=== PATIENT | female | born 1980 | race Two or more races ===

== ENCOUNTER → 2016-06-03 | Outpatient (CLI) | payer OTHER ==
[2014-10-08 22:15] VITALS: BP 142/84
[~2016-06-03] MED LIST: IBUP-1060 PO; LABE200T2 PO; OXYC-323 PO
--- NOTE | 2016-06-04 09:13 | RAD ---
Obstetrical ultrasound, 06/03/2016: History: Pelvic pain, Transabdominal scans were obtained. There is a single intrauterine gestational sac containing a single pole. It demonstrates a crown-rump length of 3.2 cm compatible with a gestational age of 10 weeks. This yields a sonographic EDC of 12/30/2016. motion and cardiac activity is present. There is no evidence of subchorionic hemorrhage. The ovaries are unremarkable. No adnexal mass is seen. No free fluid is evident in the pelvis. IMPRESSION: Single viable intrauterine fetus of 10 weeks gestational age.
== END | disposition home or self-care (01) ==
LOC: US 14:23
PROVIDERS: ATTEND Family Medicine
DX: O26.891 Other specified pregnancy related conditions, first trimester (principal); R10.2 Pelvic and perineal pain; O13.1 Gestational [pregnancy-induced] hypertension without significant proteinuria, first trimester; Z3A.10 10 weeks gestation of pregnancy
CPT/HCPCS: 76801

== ENCOUNTER 2016-12-05 11:55 | Inpatient (IN) | payer OTHER ==
[~2016-12-05] VITALS: Ht 154.9 cm; Wt 85.3 kg
[2016-12-05] MEDS ORDERED: IV RINGERS,LACTATED 1000ML 1,000 ML IV SCH (12:16)
[2016-12-05 12:30] VITALS: BP 132/90
[2016-12-05 14:08] LABS: HEMATOCRIT 39.8 % (36.0-47.0); HEMOGLOBIN 13.5 g/dL (12.0-15.5); RED BLOOD COUNT 4.47 x10^6/uL (3.50-5.40); RED CELL DISTRIBUTION WIDTH 14.4 % (11.5-14.5); WHITE BLOOD COUNT 11.3 x10^3/uL (4.0-11.0)
[2016-12-05 14:35] LABS: CREATININE 0.5 mg/dL (0.6-1.0); GFR 140.4; POTASSIUM 3.6 mmol/L (3.5-5.1)
[2016-12-05 14:41] LABS: ALBUMIN 2.5 g/dL (3.4-5.0); ALBUMIN/GLOBULIN RATIO 0.6 (1.0-1.7); TOTAL BILIRUBIN 0.4 mg/dL (0.2-1.0); TOTAL PROTEIN 6.5 g/dL (6.4-8.2)
--- NOTE | 2016-12-05 19:49 | RAD ---
Biophysical profile: Clinical indications: Hypertension. Future surveillance and growth.. Findings: A single intrauterine is present in the cephalic position. heart rate is 133. breathing movements: 2. motion: 2. tone: 2. Amniotic fluid volume: 2. Therefore, the biophysical profile score is 8 out of 8. Impression: Biophysical profile score is 8 out of 8. Electronically signed by: Jordan Torres MD (12/05/2016 7:46 PM) [facility]
--- NOTE | 2016-12-05 19:53 | RAD ---
Limited OB ultrasound study HISTORY: Hypertension. surveillance and growth. COMPARISON: None available on [facility] P[facility]. FINDINGS: Single intrauterine fetus is seen in cephalic presentation. heart rate is 133 bpm. BPD is 9.62 cm which equals 39 weeks 2 days. HC is 35.56 cm which equals 41 weeks 5 days. Abdominal circumference is 32.4 cm which equals 36 weeks 2 days. Femur length is 7.91 cm which equals 40 weeks 3 days. Average gestational age by ultrasound is 39 weeks 3 days +/- 3 weeks with an EDC of December 09, 2016. Estimated weight is 7 pounds and 10 ounces. The anatomy was not evaluated on this study. EDGAR using the 4 quadrant method is 13.5. The cervix is not visualized. Posterior grade 1 placenta is seen. The placenta is not well visualized in this study. No placenta previa is identified. IMPRESSION: Single IUP in cephalic presentation with approximate gestational age of 39 weeks 3 days. The abdominal circumference is lagging behind the other parameters and may be seen with IUGR. Electronically signed by: Jordan Torres MD (12/05/2016 7:50 PM) [facility]
[2016-12-05 20:21] LABS: BILIRUBIN,URINE NEGATIVE (NEG); GLUCOSE,URINE NEGATIVE (NEG); NITRITE,URINE NEGATIVE (NEG); PROTEIN,URINE NEGATIVE (NEG-TRACE); UROBILINOGEN,URINE 0.2 mg/dL (0.2 mg/dL)
[2016-12-05 20:32] LABS: BACTERIA,URINE FEW /HPF (0-FEW); RBC,URINE OCC /HPF (0-2); SQUAMOUS EPITHELIAL CELL,UR MANY /LPF; WBC,URINE OCC /HPF (0-4)
[2016-12-05] MEDS ORDERED: ACETAMINOPHEN 325 MG TABLET. PO PRN (23:10)
[2016-12-06] MEDS ORDERED: PNV1TABL25 PO (09:09)
[2016-12-06] MEDS ORDERED: METH250T PO ×2 (09:09→09:10)
--- NOTE | 2016-12-06 16:07 | PDOC ---
OB Progress Note Date of Service 12/06/16 Time of Evaluation 1600 Notes PT. feeling well. No headache, vision changes, abd pain, abd ctxs or vaginal bleeding. BP stable in range less than 140/90. Lab Laboratory Tests Test 12/05/16 14:00 12/05/16 20:15 White Blood Count 11.3 x10^3/uL (4.0-11.0) Red Blood Count 4.47 x10^6/uL (3.50-5.40) Hemoglobin 13.5 g/dL (12.0-15.5) Hematocrit 39.8 % (36.0-47.0) Mean Corpuscular Volume 89 fL (79-100) Mean Corpuscular Hemoglobin 30 pg (25-35) Mean Corpuscular Hemoglobin Concent 34 g/dL (31-37) Red Cell Distribution Width 14.4 % (11.5-14.5) Platelet Count 192 x10^3/uL (140-400) Sodium Level 139 mmol/L (136-145) Potassium Level 3.6 mmol/L (3.5-5.1) Chloride Level 105 mmol/L (98-107) Carbon Dioxide Level 21 mmol/L (21-32) Anion Gap 13 (6-14) Blood Urea Nitrogen 4 mg/dL (7-20) Creatinine 0.5 mg/dL (0.6-1.0) Estimated GFR (Cockcroft-Gault) 140.4 BUN/Creatinine Ratio 8 (6-20) Glucose Level 81 mg/dL (70-99) Calcium Level 9.0 mg/dL (8.5-10.1) Total Bilirubin 0.4 mg/dL (0.2-1.0) Aspartate Amino Transf (AST/SGOT) 22 U/L (15-37) Alanine Aminotransferase (ALT/SGPT) 17 U/L (14-59) Alkaline Phosphatase 197 U/L (46-116) Total Protein 6.5 g/dL (6.4-8.2) Albumin 2.5 g/dL (3.4-5.0) Albumin/Globulin Ratio 0.6 (1.0-1.7) RPR Titer Additional Testing Non reactive (Non Reactive) Urine Collection Type Unknown Urine Color Yellow Urine Clarity Cloudy Urine pH 7.0 Urine Specific [place] <=1.005 Urine Protein Negative mg/dL (NEG-TRACE) Urine Glucose (UA) Negative mg/dL (NEG) Urine Ketones (Stick) Negative mg/dL (NEG) Urine Blood Negative (NEG) Urine Nitrite Negative (NEG) Urine Bilirubin Negative (NEG) Urine Urobilinogen Dipstick 0.2 mg/dL (0.2 mg/dL) Urine Leukocyte Esterase Small (NEG) Urine RBC Occ /HPF (0-2) Urine WBC Occ /HPF (0-4) Urine Squamous Epithelial Cells Many /LPF Urine Bacteria Few /HPF (0-FEW) Laboratory Tests Test 12/05/16 20:15 Urine Collection Type Unknown Urine Color Yellow Urine Clarity Cloudy Urine pH 7.0 Urine Specific [place] <=1.005 Urine Protein Negative mg/dL (NEG-TRACE) Urine Glucose (UA) Negative mg/dL (NEG) Urine Ketones (Stick) Negative mg/dL (NEG) Urine Blood Negative (NEG) Urine Nitrite Negative (NEG) Urine Bilirubin Negative (NEG) Urine Urobilinogen Dipstick 0.2 mg/dL (0.2 mg/dL) Urine Leukocyte Esterase Small (NEG) Urine RBC Occ /HPF (0-2) Urine WBC Occ /HPF (0-4) Urine Squamous Epithelial Cells Many /LPF Urine Bacteria Few /HPF (0-FEW) Medications Current Medications Ringer's Solution 1,000 ml @ 125 mls/hr Q8H IV ; Start 12/05/16 at 12:16 Acetaminophen (Tylenol) 650 mg PRN Q6HRS PRN PO HEADACHE Last administered on t 23:34; Start 12/05/16 at 23:10 Active Scripts Active Reported Methyldopa 250 Mg Tablet 1 Tab PO DAILYWLUN Methyldopa 250 Mg Tablet 500 Mg PO BID Tablet (Pnv Cmb#95/Ferrous Fumarate/Fa) 1 Each Tablet 1 Tab PO DAILY Exam Abd: soft, non tender, no RUQ tenderness; DTR's +2 belia. Assessment A: 39 wks IUP Previous c/s Elevated BP P: 24 hour Urine protein pending. COntinue observation. If evidence of preeclampsia, then plan for repeat c/s Thursday or Thursday. ELISSA PERSAUD Jr, MD Dec 06, 2016 16:07
[2016-12-07 12:09] LABS: TOTAL SERUM CREATININE 0.49 mg/dL (0.57-1.00); TOTAL URINE CREATININE 95.4 mg/dL (Not Estab.)
--- NOTE | 2016-12-07 16:07 | PDOC ---
Provider Note Provider Note Stable Protein 389 VSS Plan RLTC/S in AM LAZ FERRER MD Dec 07, 2016 16:07
[2016-12-08] VITALS (9 sets, daily range): BP systolic 120–140; BP diastolic 70–90
[2016-12-08] MEDS ORDERED: IV RINGERS,LACTATED 1000ML 1,000 ML IV SCH ×3 (05:30→07:58)
[2016-12-08 06:23] LABS: HEMATOCRIT 40.8 % (36.0-47.0); HEMOGLOBIN 14.1 g/dL (12.0-15.5); RED BLOOD COUNT 4.53 x10^6/uL (3.50-5.40); RED CELL DISTRIBUTION WIDTH 14.2 % (11.5-14.5)
[2016-12-08] MEDS ORDERED: fentaNYL PF VIAL 100 MCG/2 ML VIAL ONE (07:19)
[2016-12-08] MEDS ORDERED: ePHEDrine PF IN SALINE 50 MG/5 ML DISP.SYRIN IV ONE (07:19)
[2016-12-08] MEDS ORDERED: OXYTOCIN 10 UNIT/ML VIAL. ONE ×2 (07:19→08:52)
[2016-12-08] MEDS ORDERED: MORPHINE PF 5 MG/10 ML VIAL. ONE (07:19)
[2016-12-08] MEDS ORDERED: ONDANSETRON PF 4 MG/2 ML VIAL. ONE (07:19)
[2016-12-08] MEDS ORDERED: PROCHLORPERAZINE 10 MG/2 ML VIAL. IV PRN (08:00)
[2016-12-08] MEDS ORDERED: diphenhydrAMINE 50 MG/ML VIAL IV PRN ×2 (08:00)
[2016-12-08] MEDS ORDERED: NALBUPHINE 10 MG/ML AMPUL. IV PRN (08:00)
[2016-12-08] MEDS ORDERED: NALOXONE 0.4 MG/ML VIAL. IV PRN (08:00)
[2016-12-08] MEDS ORDERED: ATROPINE 0.5 MG/5 ML DISP.SYRIN. IV PRN (08:00)
[2016-12-08] MEDS ORDERED: KETOROLAC 30 MG/ML INJ. IV ONE (08:00)
[2016-12-08] MEDS ORDERED: ONDANSETRON PF 4 MG/2 ML VIAL. IV PRN ×2 (08:00→09:15)
--- NOTE | 2016-12-08 08:03 | PDOC1 ---
OB - History Hx of Present Care: Good Care Ultrasounds: Normal mid trimester US Obstetrical Complications: Pre-eclampsia, Gestational Hypertension Medical Complications: Cardiovascular Past Family/Social History * Past Medical, Surgical, Family and Obstetric Histories reviewed from chart. Blood Type: O+ Rubella: Immune RPR/VDRL: Negative GBS Status: Negative HBsAG: Negative OB - Chief Complaint & HPI Date of Admission: Date of Admission: Dec 05, 2016 at 11:55 Chief Complaint/History : 3 Para: 2 EDC: Dec 23, 2016 Reason for admission: observation, other (PIH) Admission Nurse Assessment Rev: Yes Problems: OB - Admission Exam Physical Exam Vitals: VS - Last 72 Hours, by Label Date Time Temp Pulse Resp B/P (MAP) Pulse Ox O2 Delivery O2 Flow Rate FiO2 12/05/16 12:30 98.2 100 20 132/90 (104) Room Air 98.2 HEENT: Normal, Nasal Mucosa Normal, Oropharynx Normal, Moist Membranes, Fontanelles Normal Heart: Regular Rate Lungs: Clear Abdomen: Gravid Extremities: Normal Pulses, No tenderness or swelling Reflexes: Normal Cervical Dilatation: None Membranes: Intact Heart Rate: Normal Accelerations: Accelerations Present Decelerations: No decelerations Short Term Variability: Present Assistant Strength Coach Variability: Moderate Assessment/Plan 37 week IUP PIH 24 hour urine Blood pressure control Consider delivery if abnormal and continued BP problems Problems: LAZ FERRER MD Dec 08, 2016 08:03
[2016-12-08] MEDS ORDERED: CITRIC ACID/SODIUM CITRATE 30 ML SOLUTION. PO ONE (08:15)
[2016-12-08] MEDS ORDERED: diphenhydrAMINE ORAL ELIXIR 12.5 MG/5 ML ML PO PRN (09:15)
[2016-12-08] MEDS ORDERED: OXYTOCIN 30 UNIT/500 ML PREMIX 500 ML IV PRN (09:15)
[2016-12-08] MEDS ORDERED: MAGNESIUM HYDROXIDE 2,400 MG/30 ML ORAL.SUSP. PO PRN (09:15)
[2016-12-08] MEDS ORDERED: DOCUSATE SODIUM 100 MG CAPSULE. PO PRN (09:15)
[2016-12-08] MEDS ORDERED: ZOLPIDEM 5 MG TABLET. PO PRN (09:15)
[2016-12-08] MEDS ORDERED: SIMETHICONE 80 MG TAB.CHEW PO PRN (09:15)
[2016-12-08] MEDS ORDERED: MMR per PROTOCOL. MC PRN (09:15)
[2016-12-08] MEDS ORDERED: MAG HYDROX/ALUMINUM HYD/SIMETH 30 ML ORAL.SUSP PO PRN (09:15)
[2016-12-08] MEDS ORDERED: 0.9 % SODIUM CHLORIDE 10 ML DISP.SYRIN. IV PRN (09:15)
--- NOTE | 2016-12-08 09:15 | PDOC ---
BRIEF OPERATIVE NOTE Pre-Op Diagnosis PIH Post-Op Diagnosis Same Procedure Performed RLTC/S Surgeon Johana Plastic Top Assembler ERIK Anesthesia Type: Regional Blood Loss 800cc Specimens Obtained Placenta Findings Male 7# 13oz Complications None LAZ FERRER MD Dec 08, 2016 09:15
[2016-12-08] MEDS ORDERED: FERROUS SULFATE 325 MG TABLET. PO SCH (17:00)
--- NOTE | 2016-12-08 18:33 | OP ---
DATE OF SURGERY: 12/08/2016 PREOPERATIVE DIAGNOSES: Term intrauterine , -induced hypertension. POSTOPERATIVE DIAGNOSES: Term intrauterine , -induced hypertension, desires repeat . SURGEON: Tom Vaughn M.D. ENGINEERING AGENT: Dr. Watkins. ANESTHESIA: Regional. ESTIMATED BLOOD LOSS: 800 mL. FLUIDS: Crystalloid. SPECIMENS: Placenta. FINDINGS: Normal uterus, tubes, and ovaries. Male infant, Apgars pending. Weight 7 pounds 13 ounces. COMPLICATIONS: None. CONDITION: Stable. DESCRIPTION OF PROCEDURE: After risks, benefits, indications, alternatives and expectations were discussed in detail with the patient, the patient brought to the OR theater and placed in supine position with left lateral uterine displacement. After adequate regional anesthesia, the patient was prepped and draped in usual sterile manner. The previous Pfannenstiel incision was taken out in toto with the scalpel and Bovie cautery, carried down through the subcutaneous tissue with Bovie cautery. Rectus fascia was nicked in midline with Bovie cautery and extended laterally in each direction with Bovie cautery. Upper edge of rectus fascia was both bluntly and sharply with gloved hand and Bovie cautery. Same procedure was carried out on lower edge of rectus fascia. Rectus muscle was split in midline and superiorly and inferiorly with Bovie cautery with care not to injure any underlying structures. Parietal peritoneum was entered bluntly, extended superiorly and inferiorly with Bovie cautery. Lisandro retractor was replaced after a bladder flap was created with Metzenbaum scissors. Sponges were placed in the gutters. Low transverse hysterotomy incision was made sharply with the scalpel with care not to injure any underlying structures. Old dark blood came out of the incision with clear amniotic fluid. The incision was extended superiorly and laterally with gloved hand. Gloved hand was placed within the lower uterine segment. With fundal pressure from the dietary assistant, was delivered on the anterior abdominal wall. cried spontaneously and moved all extremities and was handed to nursing care in attendance after oral suction and double clamping the cord after 30 seconds and transecting the cord between the two clamps. Cord blood samples were taken. Placenta delivered spontaneously intact, was handed off the operative field to be sent to path. The uterus was wiped clean of any adherent membranes. Low transverse hysterotomy incision was reapproximated with 0 Monocryl in a running locking manner, imbricated with 0 Monocryl in a horizontal mattress stitch fashion. The sponges previously placed was removed. Gutters were inspected and noted to be free of any blood or debris. The Lisandro retractor was removed. Lower uterine segment was once again inspected. There were some areas on the dome of the bladder that was controlled with Tamiko agent. The muscles were reapproximated with 3-0 Vicryl in a horizontal interrupted fashion. The rectus muscles were inspected. The areas of bleeding were controlled with Bovie cautery. Remaining of the rectus fascia was reapproximated with 0 PDS in a running manner. Subcutaneous tissue was irrigated copiously with warm normal saline. Charlotte's fascia was reapproximated with 2-0 plain. Skin was reapproximated with Insorb bashir. Sponge, needle and instrument counts were correct x 2 per nursing staff. The patient went to postop anesthesia recovery in stable condition. TOM VAUGHN MD DR: SUAD/ace JOB#: [id number] / [id number]
[2016-12-09 05:00] LABS: BASO % 0 % (0-3); EOS % 1 % (0-3); HEMATOCRIT 33.7 % (36.0-47.0); HEMOGLOBIN 11.3 g/dL (12.0-15.5); LYMPH # 2.1 x10^3/uL (1.0-4.8); LYMPH % 18 % (24-48); MEAN CORPUSCULAR HEMOGLOBIN 31 pg (25-35); MEAN CORPUSCULAR HGB CONC 34 g/dL (31-37); MEAN CORPUSCULAR VOLUME 91 fL (79-100); MONO % 6 % (0-9); NEUT % 76 % (31-73); PLATELET COUNT 152 x10^3/uL (140-400); RED BLOOD COUNT 3.69 x10^6/uL (3.50-5.40); RED CELL DISTRIBUTION WIDTH 14.2 % (11.5-14.5); WHITE BLOOD COUNT 11.6 x10^3/uL (4.0-11.0)
[2016-12-09] MEDS: IBUPROFEN 800 MG TABLET. PO SCH ×2 (05:19→16:35)
[2016-12-09 05:45] VITALS: BP 140/92
[2016-12-09] MEDS: oxyCODONE/APAP 5/325 1 TAB TABLET PO PRN ×4 (09:09→20:43)
--- NOTE | 2016-12-09 09:52 | PDOC ---
Provider Note Provider Note Doing well VSS uterus NTTP Dressing CDI FU in AM LAZ FERRER MD Dec 09, 2016 09:52
[2016-12-09 10:50] VITALS: BP 146/86
[2016-12-09 16:30] VITALS: BP 147/85
[2016-12-09 21:03] VITALS: BP 142/81
[2016-12-10] MEDS: IBUPROFEN 800 MG TABLET. PO SCH ×2 (01:00→17:49)
[2016-12-10 05:30] VITALS: BP 135/83
[2016-12-10] MEDS: oxyCODONE/APAP 5/325 1 TAB TABLET PO PRN ×3 (06:09→23:04)
--- NOTE | 2016-12-10 08:44 | PDOC ---
OB Progress Note Date of Service 12/10/16 Time of Evaluation 0845 Notes PT. feeling well. Pain controlled. No complaints. Lab Laboratory Tests Test 12/09/16 03:35 White Blood Count 11.6 x10^3/uL (4.0-11.0) Red Blood Count 3.69 x10^6/uL (3.50-5.40) Hemoglobin 11.3 g/dL (12.0-15.5) Hematocrit 33.7 % (36.0-47.0) Mean Corpuscular Volume 91 fL (79-100) Mean Corpuscular Hemoglobin 31 pg (25-35) Mean Corpuscular Hemoglobin Concent 34 g/dL (31-37) Red Cell Distribution Width 14.2 % (11.5-14.5) Platelet Count 152 x10^3/uL (140-400) Neutrophils (%) (Auto) 76 % (31-73) Lymphocytes (%) (Auto) 18 % (24-48) Monocytes (%) (Auto) 6 % (0-9) Eosinophils (%) (Auto) 1 % (0-3) Basophils (%) (Auto) 0 % (0-3) Neutrophils # (Auto) 8.7 x10^3uL (1.8-7.7) Lymphocytes # (Auto) 2.1 x10^3/uL (1.0-4.8) Monocytes # (Auto) 0.6 x10^3/uL (0.0-1.1) Eosinophils # (Auto) 0.1 x10^3/uL (0.0-0.7) Basophils # (Auto) 0.0 x10^3/uL (0.0-0.2) Medications Current Medications Ringer's Solution 1,000 ml @ 125 mls/hr Q8H IV ; Start 12/05/16 at 12:16; Stop 12/07/16 at 16:35; Status DC Acetaminophen (Tylenol) 650 mg PRN Q6HRS PRN PO HEADACHE Last administered on t 23:34; Start 12/05/16 at 23:10 Ringer's Solution 1,000 ml @ 1,000 mls/hr Q1H IV Last administered on 06:00; Start 12/08/16 at 05:30; Stop 12/08/16 at 06:29; Status DC Ringer's Solution 1,000 ml @ 125 mls/hr Q8H IV Last administered on 12/08/16 14:43; Start 12/08/16 at 06:30 Cefazolin Sodium/ Dextrose 50 ml @ 100 mls/hr 1X ONCE IV Last administered on 12/08/16 08:05; Start 12/07/16 at 16:15; Stop 12/07/16 at 16:26; Status DC Cefazolin Sodium/ Dextrose 50 ml @ 100 mls/hr 1X PREOP IV ; Start 12/08/16 at 07:30 Fentanyl Citrate (Fentanyl 2ml Vial) 100 mcg STK-MED ONCE .ROUTE ; Start at 07:19; Stop 12/08/16 at 07:20; Status DC Oxytocin (Pitocin) 10 unit STK-MED ONCE .ROUTE ; Start 12/08/16 at 07:19; Stop 12/08/16 at 07:20; Status DC Ephedrine Sulfate 50 mg STK-MED ONCE IV ; Start 12/08/16 at 07:19; Stop at 07:20; Status DC Morphine Sulfate (Morphine Preservative Free) 5 mg STK-MED ONCE .ROUTE ; Start 12/08/16 at 07:19; Stop 12/08/16 at 07:20; Status DC Ondansetron HCl (Zofran) 4 mg STK-MED ONCE .ROUTE ; Start 12/08/16 at 07:19; Stop 12/08/16 at 07:20; Status DC Ketorolac Tromethamine (Toradol) 30 mg 1X ONCE IV Last administered on 11:23; Start 12/08/16 at 08:00; Stop 12/08/16 at 08:01; Status DC Ondansetron HCl (Zofran) 4 mg PRN Q6HRS PRN IV NAUSEA/VOMITING Last administered on 12/08/16 09:55; Start 12/08/16 at 08:00; Stop 12/09/16 at 07:59 ; Status DC Prochlorperazine Edisylate (Compazine) 5 mg PRN Q6HRS PRN IV NAUSEA/VOMITING; Start 12/08/16 at 08:00; Stop 12/09/16 at 07:59; Status DC Diphenhydramine HCl (Benadryl) 12.5 mg PRN Q4HRS PRN IV N/V; Start 12/08/16 at 08:00; Stop 12/09/16 at 07:59; Status DC Diphenhydramine HCl (Benadryl) 12.5 mg PRN Q2HR PRN IV ITCHING; Start 12/08/16 at 08:00; Stop 12/09/16 at 07:59; Status DC Nalbuphine HCl (Nubain) 2.5 mg PRN Q2HR PRN IV PAIN; Start 12/08/16 at 08:00; Stop 12/09/16 at 07:59; Status DC Atropine Sulfate 0.5 mg PRN 1X PRN IV SEE COMMENTS; Start 12/08/16 at 08:00; Stop 12/09/16 at 07:59; Status DC Naloxone HCl (Narcan) 0.04 mg PRN Q2MIN PRN IV SEE COMMENTS; Start 12/08/16 at 08:00; Stop 12/09/16 at 07:59; Status DC Ringer's Solution 1,000 ml @ 125 mls/hr Q8H IV Last administered on 12/08/16 23:04; Start 12/08/16 at 07:58; Stop 12/08/16 at 19:57; Status DC Citric Acid/ Sodium Citrate (Bicitra) 30 ml 1X ONCE PO Last administered on 08:08; Start 12/08/16 at 08:15; Stop 12/08/16 at 08:16; Status DC Oxytocin (Pitocin) 10 unit STK-MED ONCE .ROUTE ; Start 12/08/16 at 08:52; Stop 12/08/16 at 08:53; Status DC Sodium Chloride (Normal Saline Flush) 3 ml QSHIFT PRN IV AFTER MEDS AND BLOOD DRAWS; Start 12/08/16 at 09:15 Oxytocin/Sodium Chloride 500 ml @ 125 mls/hr CONT PRN IV EXCESSIVE POST- BLEEDING; Start 12/08/16 at 09:15; Stop 12/08/16 at 17:14; Status DC Ibuprofen (Motrin) 800 mg Q8HRS PO Last administered on 12/10/16 01:00; Start 12/08/16 at 14:00 Ondansetron HCl (Zofran) 4 mg PRN Q6HRS PRN IV NAUSEA/VOMITING; Start 12/08/16 at 09:15 Docusate Sodium (Colace) 100 mg PRN BID PRN PO CONSTIPATION; Start 12/08/16 at 09:15 Magnesium Hydroxide (Milk Of Magnesia) 2,400 mg PRN DAILY PRN PO CONSTIPATION; Start 12/08/16 at 09:15 Al Hydroxide/Mg Hydroxide (Mylanta Plus Xs) 30 ml PRN Q4HRS PRN PO HEARTBURN / GAS; Start 12/08/16 at 09:15 Simethicone (Gas-X) 80 mg PRN AFTMEALHC PRN PO GAS / BLOATING; Start 12/08/16 at 09:15 Diphenhydramine HCl (Benadryl Oral Elixir) 12.5 mg PRN Q6HRS PRN PO ITCHING; Start 12/08/16 at 09:15 Ferrous Sulfate (Feosol) 325 mg BIDWMEALS PO ; Start 12/08/16 at 17:00; Stop at 05:45; Status DC Zolpidem Tartrate (Ambien) 5 mg PRN QHS PRN PO INSOMNIA, MAY REPEAT X1; Start 12/08/16 at 09:15 Info (Do NOT chart on this placeholder) 1 ea PRN 1X PRN MC SEE COMMENTS; Start 12/08/16 at 09:15 Info (Do NOT chart on this placeholder) 1 ea PRN 1X PRN MC SEE COMMENTS; Start 12/08/16 at 09:15 Oxycodone/ Acetaminophen (Percocet 5/325) 1 tab PRN Q4HRS PRN PO MILD PAIN Last administered on 12/09/16 16:35; Start 12/08/16 at 09:15 Oxycodone/ Acetaminophen (Percocet 5/325) 2 tab PRN Q4HRS PRN PO MODERATE PAIN , SEVERE PAIN Last administered on 12/10/16 06:09; Start 12/08/16 at 09:15 Cefazolin Sodium 1 gm/Sodium Chloride 50 ml @ 100 mls/hr Q8H IV Last administered on 12/09/16 07:44; Start 12/08/16 at 16:00; Stop 12/09/16 at 08:29 ; Status DC Active Scripts Active Reported Methyldopa 250 Mg Tablet 1 Tab PO DAILYWLUN Methyldopa 250 Mg Tablet 500 Mg PO BID Tablet (Pnv Cmb#95/Ferrous Fumarate/Fa) 1 Each Tablet 1 Tab PO DAILY Exam Abd: soft, non tender, fundus firm Prevena wound vac in place Assessment POD#2 s/p c/s Plan of Care: Continue current Tx, Mgmt ELISSA PERSAUD Jr, MD Dec 10, 2016 08:44
[2016-12-10] MEDS ORDERED: FLU VACC QS2017-18 (36MOS+)/PF 0.5 ML SYRINGE. VAX IM ONE (09:00)
[2016-12-10 10:15] VITALS: BP 162/102
[2016-12-10 11:54] VITALS: BP 135/87
[2016-12-10 14:03] VITALS: BP 145/86
[2016-12-10 20:22] VITALS: BP 142/90
[2016-12-11 01:15] VITALS: BP 148/93
[2016-12-11] MEDS: IBUPROFEN 800 MG TABLET. PO SCH (05:29)
[2016-12-11] MEDS: oxyCODONE/APAP 5/325 1 TAB TABLET PO PRN ×2 (05:30→11:50)
[2016-12-11 06:00] VITALS: BP 138/91
[2016-12-11 08:00] VITALS: BP 139/87
--- NOTE | 2016-12-11 09:07 | PATHOLOGY ---
PATHOLOGY REPORT * * * * * * * * FINAL DIAGNOSIS: Placenta: - Third trimester placenta, 610 grams (borderline large for gestational age). - Attached trivascular umbilical cord and membranes without significant inflammation. - Placental parenchyma with focal tiny infarcts. (SKM:pit; 12/10/2016) REPORT ELECTRONICALLY SIGNED BY: Joaquín Salgado M.D. DATE/TIME: 12/11/2016 09:06 * * * * * * * * GROSS PATHOLOGY: Received in formalin labeled "Otilia Ashton, placenta and cord per requisition," is a davis placenta, with attached membranes and umbilical cord. The trimmed placental weight is 610 grams and the disc measures 20.3 x 16.8 x 3.0 cm. The membranes are niño-sebastian and translucent, and the site of membrane rupture is 2.4 cm from the placental margin. The surface is purple-niño and displays its normal arborizing vasculature. The 3 vessel umbilical cord measures 36.2 x 1.0 cm and inserts the centrically, 5.4 cm from the closest placental margin. The umbilical cord is mildly twisted. The maternal surface shows disrupted cotyledon; moderate blood coagulum is seen on the surface. Sectioning reveals maroon-red parenchyma with infarcts measuring less than 5% of the parenchyma. Sections are submitted as follows: A1: Membrane roll and peripheral edge A2: Umbilical cord A3-A4: Full-thickness sections with infarct and disruption INITIAL CPT CODE(S): A; 53314 Professional services performed [place] [facility] [place] [address] Technical services performed by [facility] at [address] [place] [address], [address] [address]. SPECIMEN(S) RECEIVED: A.Placenta CLINICAL HISTORY: Repeat , , EDC 12/26/16, 7lb 13oz male @ 0830 on 12/08/16, apgars 7-8-8 PATIENT: OTILIA ASHTON /AGE: 11 1980 (Age: 36) PATIENT #: [id number] ALT CASE #: SPECIMEN COLLECTION DATE: 12/08/2016 SPECIMEN RECEIVED DATE: 12/08/2016 [facility] - [address] [place] [address] - PHONE: [phone] * * * END OF REPORT * * *
--- NOTE | 2016-12-11 09:43 | PDOC3 ---
OB DISCHARGE SUMMARY DATE OF ADMISSION: 12/08/16 DATE OF DISCHARGE: 12/11/16 REASON FOR ADMISSION: Observation/evaluation, section, Other (PIH) PROCEDURES: None INTRAPARTUM PROCEDURES: : Low Cerv Trans PROCEDURES: None OPERATIONS: None DISCHARGE DIAGNOSIS: Term Delivered DISCHARGE INFORMATION: Activity, Diet HOSPITAL COURSE Unremarkable CONDITION AT DISCHARGE Stable LAZ FERRER MD Dec 11, 2016 09:43
[2016-12-11] MEDS ORDERED: OXYC-323 PO (09:46)
[2016-12-11] MEDS ORDERED: NAPR-683 PO (09:46)
[2016-12-11 11:00] VITALS: BP 142/98
== END 2016-12-11 12:00 | disposition home or self-care (01) | DRG 766 ==
LOC: 3 SO LND 11:55 → OBSVTOIN 12:19 → 3 SO LND 12-06 16:15
PROVIDERS: ADMIT Specialist; ATTEND Specialist
PROC: 10D00Z1 Extraction of Products of Conception, Low, Open Approach (ICD-10-PCS; principal; 2016-12-08)
DX: O13.4 Gestational [pregnancy-induced] hypertension without significant proteinuria, complicating childbirth (principal); Z37.0 Single live birth; Z3A.39 39 weeks gestation of pregnancy; O34.211 Maternal care for low transverse scar from previous cesarean delivery; O15.03 Eclampsia complicating pregnancy, third trimester
CPT/HCPCS: 36415; 76815; 76819; 80053; 81001; 82575; 84156; 85025; 85027; 86593; 86850; 86900; 86901; 87086; 88307; 90686; G0378; G0379; J0690; J1885; J2270; J2405; J2590; J3010; J7120

== ENCOUNTER 2018-07-10 06:44 | Inpatient (IN) | payer BC, OTHER ==
[2018-07-10] VITALS (10 sets, daily range): BP systolic 99–139; BP diastolic 54–84
[~2018-07-10] VITALS: Ht 154.9 cm; Wt 79.8 kg
[~2018-07-10 06:44] MED LIST changes: -LABE200T2 PO; +LABE200T4 PO; +METH250T3 PO; +NAPR-683 PO; -OXYC-323 PO; +OXYC1TAB15 PO; +PNV1TABL25 PO
[2018-07-10] MEDS ORDERED: IV NORMAL SALINE 1000ML BAG 1,000 ML IV SCH (07:07)
--- NOTE | 2018-07-10 07:10 | PHYS DOC ---
Adult General Chief Complaint Chief Complaint: ABDOMINAL PAIN HPI HPI Patient is a 38 year old female presented to ER today for evaluation of right upper quadrant abdominal pain started last night. Patient started had this problem about 3 months ago, she was diagnosed with gallbladder problem. Patient had an ultrasound done about a week ago showed multiple gallstones. The pain is more persistent and more severe.Patient felt nauseous, no vomiting. Patient denies any chest pain, no trouble breathing. Patient denies any fever. Review of Systems Review of Systems Constitutional: Denies fever or chills [] Eyes: Denies change in visual acuity, redness, or eye pain [] HENT: Denies nasal congestion or sore throat [] Respiratory: Denies cough or shortness of breath [] Cardiovascular: No additional information not addressed in HPI [] GI: Positive for abdominal pain, nausea, NO vomiting, bloody stools or diarrhea [] : Denies dysuria or hematuria [] Musculoskeletal: Denies back pain or joint pain [] Integument: Denies rash or skin lesions [] Neurologic: Denies headache, focal weakness or sensory changes [] Endocrine: Denies polyuria or polydipsia [] All other systems were reviewed and found to be within normal limits, except as documented in this note. Current Medications Current Medications Current Medications Medications (Trade) Dose Ordered Sig/[facility] Start Time Stop Time Status Last Admin Dose Admin Fentanyl Citrate (Fentanyl 2ml Vial) 50 mcg 1X ONCE 07/10/18 08:00 07/10/18 08:01 DC 07/10/18 08:11 50 MCG Ondansetron HCl (Zofran) 4 mg 1X ONCE 07/10/18 08:00 07/10/18 08:01 DC Sodium Chloride 1,000 ml @ 1,000 mls/hr Q1H 07/10/18 07:07 07/10/18 08:06 DC 07/10/18 07:17 1,000 MLS/HR Allergies Allergies Allergies Coded Allergies Type Severity Reaction Last Updated Verified No Known Drug Allergies 10/06/14 No Physical Exam Physical Exam Constitutional: Well developed, well nourished, no acute distress, non-toxic appearance. [] HENT: Normocephalic, atraumatic, bilateral external ears normal, oropharynx moist, no oral exudates, nose normal. [] Eyes: PERRLA, EOMI, conjunctiva normal, no discharge. [] Neck: Normal range of motion, no tenderness, supple, no stridor. [] Cardiovascular:Heart rate regular rhythm, no murmur [] Lungs & Thorax: Bilateral breath sounds clear to auscultation [] Abdomen: Bowel sounds normal, soft, there is tenderness to palpation in RUQ, no masses, no pulsatile masses. [] Skin: Warm, dry, no erythema, no rash. [] Back: No tenderness, no CVA tenderness. [] Extremities: No tenderness, no cyanosis, no clubbing, ROM intact, no edema. [] Neurologic: Alert and oriented X 3, normal motor function, normal sensory function, no focal deficits noted. [] Psychologic: Affect normal, judgement normal, mood normal. [] Current Patient Data Vital Signs Vital Signs Date Time Temp Pulse Resp B/P (MAP) Pulse Ox O2 Delivery O2 Flow Rate FiO2 07/10/18 09:00 56 18 101/56 (71) 97 07/10/18 07:16 Room Air 07/10/18 07:10 97.7 97.7 Lab Values Laboratory Tests Test 07/10/18 06:50 07/10/18 07:15 07/10/18 07:26 Urine Collection Type Unknown Urine Color Yellow Urine Clarity Clear Urine pH 6.5 Urine Specific [place] 1.025 Urine Protein Negative mg/dL (NEG-TRACE) Urine Glucose (UA) Negative mg/dL (NEG) Urine Ketones (Stick) Negative mg/dL (NEG) Urine Blood Negative (NEG) Urine Nitrite Negative (NEG) Urine Bilirubin Negative (NEG) Urine Urobilinogen Dipstick 1.0 mg/dL (0.2 mg/dL) Urine Leukocyte Esterase Negative (NEG) Urine RBC 0 /HPF (0-2) Urine WBC Occ /HPF (0-4) Urine Squamous Epithelial Cells Many /LPF Urine Bacteria 0 /HPF (0-FEW) Urine Mucus Marked /LPF White Blood Count 9.5 x10^3/uL (4.0-11.0) Red Blood Count 4.43 x10^6/uL (3.50-5.40) Hemoglobin 13.4 g/dL (12.0-15.5) Hematocrit 39.9 % (36.0-47.0) Mean Corpuscular Volume 90 fL (79-100) Mean Corpuscular Hemoglobin 30 pg (25-35) Mean Corpuscular Hemoglobin Concent 34 g/dL (31-37) Red Cell Distribution Width 13.3 % (11.5-14.5) Platelet Count 259 x10^3/uL (140-400) Neutrophils (%) (Auto) 71 % (31-73) Lymphocytes (%) (Auto) 22 % (24-48) L Monocytes (%) (Auto) 6 % (0-9) Eosinophils (%) (Auto) 1 % (0-3) Basophils (%) (Auto) 0 % (0-3) Neutrophils # (Auto) 6.8 x10^3uL (1.8-7.7) Lymphocytes # (Auto) 2.0 x10^3/uL (1.0-4.8) Monocytes # (Auto) 0.5 x10^3/uL (0.0-1.1) Eosinophils # (Auto) 0.1 x10^3/uL (0.0-0.7) Basophils # (Auto) 0.0 x10^3/uL (0.0-0.2) Sodium Level 138 mmol/L (136-145) Potassium Level 4.3 mmol/L (3.5-5.1) Chloride Level 105 mmol/L (98-107) Carbon Dioxide Level 24 mmol/L (21-32) Anion Gap 9 (6-14) Blood Urea Nitrogen 14 mg/dL (7-20) Creatinine 0.7 mg/dL (0.6-1.0) Estimated GFR (Cockcroft-Gault) 94.2 BUN/Creatinine Ratio 20 (6-20) Glucose Level 130 mg/dL (70-99) H Calcium Level 8.8 mg/dL (8.5-10.1) Total Bilirubin 0.7 mg/dL (0.2-1.0) Aspartate Amino Transferase (AST) 161 U/L (15-37) H Alanine Aminotransferase (ALT) 92 U/L (14-59) H Alkaline Phosphatase 84 U/L (46-116) Total Protein 6.9 g/dL (6.4-8.2) Albumin 3.5 g/dL (3.4-5.0) Albumin/Globulin Ratio 1.0 (1.0-1.7) Lipase 100 U/L (73-393) Serum Test, Qualitative Negative (NEG) Prothrombin Time 14.4 SEC (11.7-14.0) H Prothrombin Time INR 1.2 (0.8-1.1) H PTT 25 SEC (24-38) Laboratory Tests 07/10/18 07:15 Laboratory Tests 07/10/18 07:15 EKG EKG [] Radiology/Procedures Radiology/Procedures [][facility] [address] [place] [address] IMAGING REPORT Signed PATIENT: OTILIA ZAVALA ACCOUNT: [id number] : 1980 LOCATION: ER AGE: 38 SEX: F EXAM STATUS: REG ER ORD. PHYSICIAN: BERRY WRIGHT DO REASON: ruq abdominal pain, hx of gallstones. PROCEDURE: ABDOMEN LTD ABDOMEN LTD History: Right upper quadrant pain, history of gallstones Comparison: None. Findings: Multiple sonographic images of the abdomen are submitted. Gallbladder is present, internal echogenicity filling the gallbladder lumen. Submitted gallbladder wall measurement of 0.3 cm is considered borderline although difficult to exclude edematous gallbladder wall given the mixed echogenicity and shadowing present. Common bile duct is dilated about 0.8 cm. There is reportedly a positive sonographic Rodarte's sign. No focal hepatic lesion is demonstrated. Hepatic echogenicity is within normal limits. Right lobe of the liver measured 13.7 cm longitudinal. Right kidney measured 10.8 x 4.8 x 5 cm, no hydronephrosis. There is segmental visualization of the inferior vena cava. No abnormality is identified of the visualized pancreas. Impression: 1. There is cholelithiasis and gallbladder sludge filling the gallbladder lumen, borderline gallbladder wall thickening although difficult to exclude edematous gallbladder wall giving the mixed echogenicity present. There is reportedly a positive sonographic Rodarte's sign, overall findings concerning for cholecystitis. There is dilatation of the common bile duct up to 0.8 cm. Electronically signed by: Shravan Weems MD (07/10/2018 8:24 AM) [facility] DICTATED and SIGNED BY: SHRAVAN WEEMS MD DATE: 07/10/18823 Course & Med Decision Making Course & Med Decision Making Pertinent Labs and Imaging studies reviewed. (See chart for details) Consulted Dr. Huang, General surgeon, will see patient. Dragon Disclaimer Dragon Disclaimer This electronic medical record was generated, in whole or in part, using a voice recognition dictation system. Departure Departure Impression: Primary Impression: Biliary colic Disposition: ADMITTED INPATIENT Admitting Physician: Robyn Hinds Condition: STABLE Referrals: TRES GUTIERREZ MD (PCP) BERRY WRIGHT DO Jul 10, 2018 07:10
[2018-07-10] MEDS ORDERED: ONDANSETRON PF 4 MG/2 ML VIAL. IV ONE ×2 (07:15→08:00)
[2018-07-10] MEDS ORDERED: fentaNYL PF VIAL 100 MCG/2 ML VIAL IV ONE ×2 (07:15→08:00)
[2018-07-10 07:23] LABS: BILIRUBIN,URINE NEGATIVE (NEG); CLARITY,URINE CLEAR; COLOR,URINE YELLOW; NITRITE,URINE NEGATIVE (NEG); PH,URINE 6.5; PROTEIN,URINE NEGATIVE (NEG-TRACE)
[2018-07-10 07:36] LABS: CALCIUM 8.8 mg/dL (8.5-10.1); CREATININE 0.7 mg/dL (0.6-1.0); GFR 94.2; POTASSIUM 4.3 mmol/L (3.5-5.1)
[2018-07-10 07:40] LABS: BACTERIA,URINE 0 /HPF (0-FEW); RBC,URINE 0 /HPF (0-2); SQUAMOUS EPITHELIAL CELL,UR MANY /LPF; WBC,URINE OCC /HPF (0-4)
[2018-07-10 07:40] LABS: PREG TEST PT QUAL NEGATIVE (NEG)
[2018-07-10 07:42] LABS: ALBUMIN 3.5 g/dL (3.4-5.0); TOTAL BILIRUBIN 0.7 mg/dL (0.2-1.0); TOTAL PROTEIN 6.9 g/dL (6.4-8.2)
[2018-07-10 07:46] LABS: BASO % 0 % (0-3); EOS # 0.1 x10^3/uL (0.0-0.7); EOS % 1 % (0-3); HEMATOCRIT 39.9 % (36.0-47.0); HEMOGLOBIN 13.4 g/dL (12.0-15.5); LYMPH % 22 % (24-48); MEAN CORPUSCULAR HEMOGLOBIN 30 pg (25-35); MEAN CORPUSCULAR HGB CONC 34 g/dL (31-37); MEAN CORPUSCULAR VOLUME 90 fL (79-100); MONO # 0.5 x10^3/uL (0.0-1.1); MONO % 6 % (0-9); NEUT # 6.8 x10^3uL (1.8-7.7); NEUT % 71 % (31-73); PLATELET COUNT 259 x10^3/uL (140-400); RED BLOOD COUNT 4.43 x10^6/uL (3.50-5.40); RED CELL DISTRIBUTION WIDTH 13.3 % (11.5-14.5); WHITE BLOOD COUNT 9.5 x10^3/uL (4.0-11.0)
[2018-07-10 07:58] LABS: PROTHROMBIN TIME PATIENT 14.4 SEC (11.7-14.0)
--- NOTE | 2018-07-10 08:27 | RAD ---
ABDOMEN LTD History: Right upper quadrant pain, history of gallstones Comparison: None. Findings: Multiple sonographic images of the abdomen are submitted. Gallbladder is present, internal echogenicity filling the gallbladder lumen. Submitted gallbladder wall measurement of 0.3 cm is considered borderline although difficult to exclude edematous gallbladder wall given the mixed echogenicity and shadowing present. Common bile duct is dilated about 0.8 cm. There is reportedly a positive sonographic Rodarte's sign. No focal hepatic lesion is demonstrated. Hepatic echogenicity is within normal limits. Right lobe of the liver measured 13.7 cm longitudinal. Right kidney measured 10.8 x 4.8 x 5 cm, no hydronephrosis. There is segmental visualization of the inferior vena cava. No abnormality is identified of the visualized pancreas. Impression: 1. There is cholelithiasis and gallbladder sludge filling the gallbladder lumen, borderline gallbladder wall thickening although difficult to exclude edematous gallbladder wall giving the mixed echogenicity present. There is reportedly a positive sonographic Rodarte's sign, overall findings concerning for cholecystitis. There is dilatation of the common bile duct up to 0.8 cm. Electronically signed by: Alirio Mello MD (07/10/2018 8:24 AM) [facility]
[2018-07-10] MEDS ORDERED: ONDANSETRON PF 4 MG/2 ML VIAL. IV PRN ×3 (09:15→15:45)
[2018-07-10] MEDS: fentaNYL PF VIAL 100 MCG/2 ML VIAL IV PRN ×3 (09:22→14:07)
[2018-07-10] MEDS ORDERED: PIPERACILLIN/TAZOBACTAM 3.375 GM in IV NORMAL SALINE 50ML 50 ML IV ONE (09:30)
[2018-07-10] MEDS ORDERED: SURGICEL HEMOSTAT 2X3 EACH. ONE (10:40)
[2018-07-10] MEDS ORDERED: BISACODYL 10 MG SUPP.RECT. ONE (10:40)
[2018-07-10] MEDS ORDERED: HEPARIN for IV BOLUS 10,000 UNIT/10 ML VIAL. ONE (10:40)
[2018-07-10] MEDS ORDERED: BUPIVAC MPF-EPI 0.5%-1:200000 30 ML VIAL. ONE (10:40)
[2018-07-10] MEDS ORDERED: IOHEXOL 300 MG/ML 50 ML VIAL. ONE (10:40)
--- NOTE | 2018-07-10 11:38 | PDOC1 ---
History and Physical Date of Admission: Date of Admission DATE: 07/10/18 TIME: 11:35 Chief Complaint: Problems: (1) Hypertension in delivered (2) Supervision of normal IUP (intrauterine ) in multigravida (3) Biliary colic (4) PIH ( induced hypertension) Chief Complain: Abdominal pain with known gallstones History of Present Illness: HPI: Patient is a 38 year old female presented to ER today for evaluation of right upper quadrant abdominal pain started last night. Patient started had this problem about 3 months ago, she was diagnosed with gallbladder problem. Patient had an ultrasound done about a week ago showed multiple gallstones. The pain is more persistent and more severe.Patient felt nauseous, no vomiting. Patient de nies any chest pain, no trouble breathing. Patient denies any fever. Past Medical/Surgical History: PMH/PSH: Gallstones Allergies: Allergies: Coded Allergies: No Known Drug Allergies (Unverified , 10/06/14) Family History: Family History: Gallstones Social History: Social Hisoty: She does not drink smoke or take drugs she is a [id number] mom Current Medications: Current Medications Current Medications Sodium Chloride 1,000 ml @ 1,000 mls/hr Q1H IV Last administered on 07/10/18at 07:17; Start 07/10/18 at 07:07; Stop 07/10/18 at 08:06; Status DC Fentanyl Citrate (Fentanyl 2ml Vial) 50 mcg 1X ONCE IV Last administered on 07/10/18at 07:16; Start 07/10/18 at 07:15; Stop 07/10/18 at 07:16; Status DC Ondansetron HCl (Zofran) 4 mg 1X ONCE IV Last administered on 07/10/18at 07:15; Start 07/10/18 at 07:15; Stop 07/10/18 at 07:16; Status DC Fentanyl Citrate (Fentanyl 2ml Vial) 50 mcg 1X ONCE IV Last administered on 07/10/18at 08:11; Start 07/10/18 at 08:00; Stop 07/10/18 at 08:01; Status DC Ondansetron HCl (Zofran) 4 mg 1X ONCE IV ; Start 07/10/18 at 08:00; Stop at 08:01; Status DC Ondansetron HCl (Zofran) 4 mg PRN Q8HRS PRN IV NAUSEA/VOMITING; Start 07/10/18 at 09:15; Stop 07/11/18 at 09:14 Fentanyl Citrate (Fentanyl 2ml Vial) 50 mcg PRN Q2HR PRN IV PAIN Last administered on 07/10/18at 09:22; Start 07/10/18 at 09:15; Stop 07/11/18 at 09:14 Piperacillin Sod/ Tazobactam Sod 3.375 gm/Sodium Chloride 50 ml @ 100 mls/hr Q6HRS IV ; Start 07/10/18 at 13:00 Piperacillin Sod/ Tazobactam Sod 3.375 gm/Sodium Chloride 50 ml @ 100 mls/hr 1X ONCE IV Last administered on 07/10/18at 09:39; Start 07/10/18 at 09:30; Stop 07/10/18 at 09:59; Status DC Active Scripts Active Naprosyn (Naproxen) 500 Mg Tablet 1 Tab PO BID Percocet 5-325 Mg Tablet (Oxycodone/Acetaminophen) 1 Each Tablet 1-2 Tab PO Q4- 6HRS Reported Methyldopa 250 Mg Tablet 1 Tab PO DAILYWLUN Methyldopa 250 Mg Tablet 500 Mg PO BID Tablet (Pnv Cmb#95/Ferrous Fumarate/Fa) 1 Each Tablet 1 Tab PO DAILY ROS: Review of Systems Review of System REVIEW OF SYSTEMS: GENERAL: Denies weakness SKIN: No bruising, hair changes or rashes. EYES: No blurred, double or loss of vision. NOSE AND THROAT: No history of nosebleeds, hoarseness or sore throat. HEART: No history of palpitations, chest pain or shortness of breath on exertion. LUNGS: Denies cough, hemoptysis, wheezing or shortness of breath. GASTROINTESTINAL: Complains of severe abdominal pain GENITOURINARY: No history of frequency, urgency, hesitancy or nocturia. NEUROLOGIC: Denies history of numbness, tingling, tremor or weakness. PSYCHIATRIC: No history of panic, anxiety or depression. ENDOCRINE: No history of heat or cold intolerance, polyuria or polydipsia. EXTREMITIES: Denies muscle weakness, joint pain, pain on walking or stiffness. Physical Exam: Vital Signs: Vital Signs Date Time Temp Pulse Resp B/P (MAP) Pulse Ox O2 Delivery O2 Flow Rate FiO2 07/10/18 10:00 62 18 96/60 (72) 97 07/10/18 07:16 Room Air 07/10/18 07:10 97.7 97.7 Physcial Exam: GEN.: No apparent distress. Alert and oriented. HEENT: Head is normocephalic, atraumatic NECK: Supple, no JVD LUNGS: Clear to auscultation without rhonchi or wheezing HEART: Severe abdominal pain with palpation ABDOMEN: Soft, nontender. Positive bowel sounds no organomegaly EXTREMITIES: Without any cyanosis, clubbing, or edema. Pedal pulses intact NEUROLOGIC: Normal speech, normal tone. A&O x 3 PSYCHIATRIC: Normal affect, normal mood. Stable SKIN: No ulcerations or rashes Labs: Labs: Laboratory Tests Test 07/10/18 06:50 07/10/18 07:15 07/10/18 07:26 Urine Collection Type Unknown Urine Color Yellow Urine Clarity Clear Urine pH 6.5 Urine Specific [place] 1.025 Urine Protein Negative mg/dL (NEG-TRACE) Urine Glucose (UA) Negative mg/dL (NEG) Urine Ketones (Stick) Negative mg/dL (NEG) Urine Blood Negative (NEG) Urine Nitrite Negative (NEG) Urine Bilirubin Negative (NEG) Urine Urobilinogen Dipstick 1.0 mg/dL (0.2 mg/dL) Urine Leukocyte Esterase Negative (NEG) Urine RBC 0 /HPF (0-2) Urine WBC Occ /HPF (0-4) Urine Squamous Epithelial Cells Many /LPF Urine Bacteria 0 /HPF (0-FEW) Urine Mucus Marked /LPF White Blood Count 9.5 x10^3/uL (4.0-11.0) Red Blood Count 4.43 x10^6/uL (3.50-5.40) Hemoglobin 13.4 g/dL (12.0-15.5) Hematocrit 39.9 % (36.0-47.0) Mean Corpuscular Volume 90 fL (79-100) Mean Corpuscular Hemoglobin 30 pg (25-35) Mean Corpuscular Hemoglobin Concent 34 g/dL (31-37) Red Cell Distribution Width 13.3 % (11.5-14.5) Platelet Count 259 x10^3/uL (140-400) Neutrophils (%) (Auto) 71 % (31-73) Lymphocytes (%) (Auto) 22 % (24-48) Monocytes (%) (Auto) 6 % (0-9) Eosinophils (%) (Auto) 1 % (0-3) Basophils (%) (Auto) 0 % (0-3) Neutrophils # (Auto) 6.8 x10^3uL (1.8-7.7) Lymphocytes # (Auto) 2.0 x10^3/uL (1.0-4.8) Monocytes # (Auto) 0.5 x10^3/uL (0.0-1.1) Eosinophils # (Auto) 0.1 x10^3/uL (0.0-0.7) Basophils # (Auto) 0.0 x10^3/uL (0.0-0.2) Sodium Level 138 mmol/L (136-145) Potassium Level 4.3 mmol/L (3.5-5.1) Chloride Level 105 mmol/L (98-107) Carbon Dioxide Level 24 mmol/L (21-32) Anion Gap 9 (6-14) Blood Urea Nitrogen 14 mg/dL (7-20) Creatinine 0.7 mg/dL (0.6-1.0) Estimated GFR (Cockcroft-Gault) 94.2 BUN/Creatinine Ratio 20 (6-20) Glucose Level 130 mg/dL (70-99) Calcium Level 8.8 mg/dL (8.5-10.1) Total Bilirubin 0.7 mg/dL (0.2-1.0) Aspartate Amino Transf (AST/SGOT) 161 U/L (15-37) Alanine Aminotransferase (ALT/SGPT) 92 U/L (14-59) Alkaline Phosphatase 84 U/L (46-116) Total Protein 6.9 g/dL (6.4-8.2) Albumin 3.5 g/dL (3.4-5.0) Albumin/Globulin Ratio 1.0 (1.0-1.7) Lipase 100 U/L (73-393) Serum Test, Qualitative Negative (NEG) Prothrombin Time 14.4 SEC (11.7-14.0) Prothromb Time International Ratio 1.2 (0.8-1.1) Activated Partial Thromboplast Time 25 SEC (24-38) Laboratory Tests Test 07/10/18 06:50 07/10/18 07:15 07/10/18 07:26 Urine Collection Type Unknown Urine Color Yellow Urine Clarity Clear Urine pH 6.5 Urine Specific [place] 1.025 Urine Protein Negative mg/dL (NEG-TRACE) Urine Glucose (UA) Negative mg/dL (NEG) Urine Ketones (Stick) Negative mg/dL (NEG) Urine Blood Negative (NEG) Urine Nitrite Negative (NEG) Urine Bilirubin Negative (NEG) Urine Urobilinogen Dipstick 1.0 mg/dL (0.2 mg/dL) Urine Leukocyte Esterase Negative (NEG) Urine RBC 0 /HPF (0-2) Urine WBC Occ /HPF (0-4) Urine Squamous Epithelial Cells Many /LPF Urine Bacteria 0 /HPF (0-FEW) Urine Mucus Marked /LPF White Blood Count 9.5 x10^3/uL (4.0-11.0) Red Blood Count 4.43 x10^6/uL (3.50-5.40) Hemoglobin 13.4 g/dL (12.0-15.5) Hematocrit 39.9 % (36.0-47.0) Mean Corpuscular Volume 90 fL (79-100) Mean Corpuscular Hemoglobin 30 pg (25-35) Mean Corpuscular Hemoglobin Concent 34 g/dL (31-37) Red Cell Distribution Width 13.3 % (11.5-14.5) Platelet Count 259 x10^3/uL (140-400) Neutrophils (%) (Auto) 71 % (31-73) Lymphocytes (%) (Auto) 22 % (24-48) Monocytes (%) (Auto) 6 % (0-9) Eosinophils (%) (Auto) 1 % (0-3) Basophils (%) (Auto) 0 % (0-3) Neutrophils # (Auto) 6.8 x10^3uL (1.8-7.7) Lymphocytes # (Auto) 2.0 x10^3/uL (1.0-4.8) Monocytes # (Auto) 0.5 x10^3/uL (0.0-1.1) Eosinophils # (Auto) 0.1 x10^3/uL (0.0-0.7) Basophils # (Auto) 0.0 x10^3/uL (0.0-0.2) Sodium Level 138 mmol/L (136-145) Potassium Level 4.3 mmol/L (3.5-5.1) Chloride Level 105 mmol/L (98-107) Carbon Dioxide Level 24 mmol/L (21-32) Anion Gap 9 (6-14) Blood Urea Nitrogen 14 mg/dL (7-20) Creatinine 0.7 mg/dL (0.6-1.0) Estimated GFR (Cockcroft-Gault) 94.2 BUN/Creatinine Ratio 20 (6-20) Glucose Level 130 mg/dL (70-99) Calcium Level 8.8 mg/dL (8.5-10.1) Total Bilirubin 0.7 mg/dL (0.2-1.0) Aspartate Amino Transf (AST/SGOT) 161 U/L (15-37) Alanine Aminotransferase (ALT/SGPT) 92 U/L (14-59) Alkaline Phosphatase 84 U/L (46-116) Total Protein 6.9 g/dL (6.4-8.2) Albumin 3.5 g/dL (3.4-5.0) Albumin/Globulin Ratio 1.0 (1.0-1.7) Lipase 100 U/L (73-393) Serum Test, Qualitative Negative (NEG) Prothrombin Time 14.4 SEC (11.7-14.0) Prothromb Time International Ratio 1.2 (0.8-1.1) Activated Partial Thromboplast Time 25 SEC (24-38) Images: Images Sounds shows gallstones Assessment/Plan Assessment/Plan Symptomatic gallstones Plan Consult general surgery and GI, Zofran IV fluids frequent labs DVT prophylaxis full code home meds DEVONTE ALVAREZ III DO Jul 10, 2018 11:38
[2018-07-10] MEDS ORDERED: IV RINGERS,LACTATED 1000ML 1,000 ML IV SCH (11:39)
--- NOTE | 2018-07-10 11:44 | PDOC2 ---
CONSULT Date of Consult Date of Consult DATE: 07/10/18 TIME: 11:39 Reason for Consult Reason for Consult: Calculous cholecystitis Referring Physician Referring Physician: Dejuan Identification/Chief Complaint Chief Complaint RUQ pain, N/V Source Source: Chart review, Patient History of Present Illness Reason for Visit: 38 yo F with c/o RUQ pain radiating to her back. Pain present for a few months. Seen by PCP with US and tentatively planning surgical consultation. However, pt developed worse, unrelenting pain with N/V. Past Medical History Cardiovascular: HTN Past Surgical History Past Surgical History: Family History Family History: No Significant Social History No ALCOHOL: none Current Problem List Problem List Problems Medical Problems: (1) Biliary colic Status: Acute Current Medications Current Medications Current Medications Sodium Chloride 1,000 ml @ 1,000 mls/hr Q1H IV Last administered on 07/10/18at 07:17; Start 07/10/18 at 07:07; Stop 07/10/18 at 08:06; Status DC Fentanyl Citrate (Fentanyl 2ml Vial) 50 mcg 1X ONCE IV Last administered on 07/10/18at 07:16; Start 07/10/18 at 07:15; Stop 07/10/18 at 07:16; Status DC Ondansetron HCl (Zofran) 4 mg 1X ONCE IV Last administered on 07/10/18at 07:15; Start 07/10/18 at 07:15; Stop 07/10/18 at 07:16; Status DC Fentanyl Citrate (Fentanyl 2ml Vial) 50 mcg 1X ONCE IV Last administered on 07/10/18at 08:11; Start 07/10/18 at 08:00; Stop 07/10/18 at 08:01; Status DC Ondansetron HCl (Zofran) 4 mg 1X ONCE IV ; Start 07/10/18 at 08:00; Stop 07/10/18 at 08:01; Status DC Ondansetron HCl (Zofran) 4 mg PRN Q8HRS PRN IV NAUSEA/VOMITING; Start 07/10/18 at 09:15; Stop 07/11/18 at 09:14 Fentanyl Citrate (Fentanyl 2ml Vial) 50 mcg PRN Q2HR PRN IV PAIN Last administered on 07/10/18at 09:22; Start 07/10/18 at 09:15; Stop 07/11/18 at 09:14 Piperacillin Sod/ Tazobactam Sod 3.375 gm/Sodium Chloride 50 ml @ 100 mls/hr Q6HRS IV ; Start 07/10/18 at 13:00 Piperacillin Sod/ Tazobactam Sod 3.375 gm/Sodium Chloride 50 ml @ 100 mls/hr 1X ONCE IV Last administered on 07/10/18at 09:39; Start 07/10/18 at 09:30; Stop 07/10/18 at 09:59; Status DC Active Scripts Active Naprosyn (Naproxen) 500 Mg Tablet 1 Tab PO BID Percocet 5-325 Mg Tablet (Oxycodone/Acetaminophen) 1 Each Tablet 1-2 Tab PO Q4- 6HRS Reported Methyldopa 250 Mg Tablet 1 Tab PO DAILYWLUN Methyldopa 250 Mg Tablet 500 Mg PO BID Tablet (Pnv Cmb#95/Ferrous Fumarate/Fa) 1 Each Tablet 1 Tab PO DAILY Allergies Allergies: Coded Allergies: No Known Drug Allergies (Unverified , 10/06/14) ROS Gastrointestinal: Yes Nausea, Yes Vomiting, Yes Abdominal Pain Physical Exam General: Alert, Oriented X3, Cooperative, mild distress HEENT: Atraumatic Lungs: Normal air movement Abdomen: Soft, Other (TTP RUQ) Extremities: No clubbing, No cyanosis Skin: No rashes, No breakdown Neuro: Normal speech, Sensation intact Psych/Mental Status: Mental status NL, Mood NL Vitals VITALS Vital Signs Date Time Temp Pulse Resp B/P (MAP) Pulse Ox O2 Delivery O2 Flow Rate FiO2 07/10/18 10:00 62 18 96/60 (72) 97 07/10/18 07:16 Room Air 07/10/18 07:10 97.7 97.7 Labs Labs Laboratory Tests Test 07/10/18 06:50 07/10/18 07:15 07/10/18 07:26 Urine Collection Type Unknown Urine Color Yellow Urine Clarity Clear Urine pH 6.5 Urine Specific [place] 1.025 Urine Protein Negative mg/dL (NEG-TRACE) Urine Glucose (UA) Negative mg/dL (NEG) Urine Ketones (Stick) Negative mg/dL (NEG) Urine Blood Negative (NEG) Urine Nitrite Negative (NEG) Urine Bilirubin Negative (NEG) Urine Urobilinogen Dipstick 1.0 mg/dL (0.2 mg/dL) Urine Leukocyte Esterase Negative (NEG) Urine RBC 0 /HPF (0-2) Urine WBC Occ /HPF (0-4) Urine Squamous Epithelial Cells Many /LPF Urine Bacteria 0 /HPF (0-FEW) Urine Mucus Marked /LPF White Blood Count 9.5 x10^3/uL (4.0-11.0) Red Blood Count 4.43 x10^6/uL (3.50-5.40) Hemoglobin 13.4 g/dL (12.0-15.5) Hematocrit 39.9 % (36.0-47.0) Mean Corpuscular Volume 90 fL (79-100) Mean Corpuscular Hemoglobin 30 pg (25-35) Mean Corpuscular Hemoglobin Concent 34 g/dL (31-37) Red Cell Distribution Width 13.3 % (11.5-14.5) Platelet Count 259 x10^3/uL (140-400) Neutrophils (%) (Auto) 71 % (31-73) Lymphocytes (%) (Auto) 22 % (24-48) Monocytes (%) (Auto) 6 % (0-9) Eosinophils (%) (Auto) 1 % (0-3) Basophils (%) (Auto) 0 % (0-3) Neutrophils # (Auto) 6.8 x10^3uL (1.8-7.7) Lymphocytes # (Auto) 2.0 x10^3/uL (1.0-4.8) Monocytes # (Auto) 0.5 x10^3/uL (0.0-1.1) Eosinophils # (Auto) 0.1 x10^3/uL (0.0-0.7) Basophils # (Auto) 0.0 x10^3/uL (0.0-0.2) Sodium Level 138 mmol/L (136-145) Potassium Level 4.3 mmol/L (3.5-5.1) Chloride Level 105 mmol/L (98-107) Carbon Dioxide Level 24 mmol/L (21-32) Anion Gap 9 (6-14) Blood Urea Nitrogen 14 mg/dL (7-20) Creatinine 0.7 mg/dL (0.6-1.0) Estimated GFR (Cockcroft-Gault) 94.2 BUN/Creatinine Ratio 20 (6-20) Glucose Level 130 mg/dL (70-99) Calcium Level 8.8 mg/dL (8.5-10.1) Total Bilirubin 0.7 mg/dL (0.2-1.0) Aspartate Amino Transf (AST/SGOT) 161 U/L (15-37) Alanine Aminotransferase (ALT/SGPT) 92 U/L (14-59) Alkaline Phosphatase 84 U/L (46-116) Total Protein 6.9 g/dL (6.4-8.2) Albumin 3.5 g/dL (3.4-5.0) Albumin/Globulin Ratio 1.0 (1.0-1.7) Lipase 100 U/L (73-393) Serum Test, Qualitative Negative (NEG) Prothrombin Time 14.4 SEC (11.7-14.0) Prothromb Time International Ratio 1.2 (0.8-1.1) Activated Partial Thromboplast Time 25 SEC (24-38) Laboratory Tests Test 07/10/18 06:50 07/10/18 07:15 07/10/18 07:26 Urine Collection Type Unknown Urine Color Yellow Urine Clarity Clear Urine pH 6.5 Urine Specific [place] 1.025 Urine Protein Negative mg/dL (NEG-TRACE) Urine Glucose (UA) Negative mg/dL (NEG) Urine Ketones (Stick) Negative mg/dL (NEG) Urine Blood Negative (NEG) Urine Nitrite Negative (NEG) Urine Bilirubin Negative (NEG) Urine Urobilinogen Dipstick 1.0 mg/dL (0.2 mg/dL) Urine Leukocyte Esterase Negative (NEG) Urine RBC 0 /HPF (0-2) Urine WBC Occ /HPF (0-4) Urine Squamous Epithelial Cells Many /LPF Urine Bacteria 0 /HPF (0-FEW) Urine Mucus Marked /LPF White Blood Count 9.5 x10^3/uL (4.0-11.0) Red Blood Count 4.43 x10^6/uL (3.50-5.40) Hemoglobin 13.4 g/dL (12.0-15.5) Hematocrit 39.9 % (36.0-47.0) Mean Corpuscular Volume 90 fL (79-100) Mean Corpuscular Hemoglobin 30 pg (25-35) Mean Corpuscular Hemoglobin Concent 34 g/dL (31-37) Red Cell Distribution Width 13.3 % (11.5-14.5) Platelet Count 259 x10^3/uL (140-400) Neutrophils (%) (Auto) 71 % (31-73) Lymphocytes (%) (Auto) 22 % (24-48) Monocytes (%) (Auto) 6 % (0-9) Eosinophils (%) (Auto) 1 % (0-3) Basophils (%) (Auto) 0 % (0-3) Neutrophils # (Auto) 6.8 x10^3uL (1.8-7.7) Lymphocytes # (Auto) 2.0 x10^3/uL (1.0-4.8) Monocytes # (Auto) 0.5 x10^3/uL (0.0-1.1) Eosinophils # (Auto) 0.1 x10^3/uL (0.0-0.7) Basophils # (Auto) 0.0 x10^3/uL (0.0-0.2) Sodium Level 138 mmol/L (136-145) Potassium Level 4.3 mmol/L (3.5-5.1) Chloride Level 105 mmol/L (98-107) Carbon Dioxide Level 24 mmol/L (21-32) Anion Gap 9 (6-14) Blood Urea Nitrogen 14 mg/dL (7-20) Creatinine 0.7 mg/dL (0.6-1.0) Estimated GFR (Cockcroft-Gault) 94.2 BUN/Creatinine Ratio 20 (6-20) Glucose Level 130 mg/dL (70-99) Calcium Level 8.8 mg/dL (8.5-10.1) Total Bilirubin 0.7 mg/dL (0.2-1.0) Aspartate Amino Transf (AST/SGOT) 161 U/L (15-37) Alanine Aminotransferase (ALT/SGPT) 92 U/L (14-59) Alkaline Phosphatase 84 U/L (46-116) Total Protein 6.9 g/dL (6.4-8.2) Albumin 3.5 g/dL (3.4-5.0) Albumin/Globulin Ratio 1.0 (1.0-1.7) Lipase 100 U/L (73-393) Serum Test, Qualitative Negative (NEG) Prothrombin Time 14.4 SEC (11.7-14.0) Prothromb Time International Ratio 1.2 (0.8-1.1) Activated Partial Thromboplast Time 25 SEC (24-38) Images Images US with gallstones and GB wall thickening Assessment/Plan Assessment/Plan Calculous cholecystitis TO OR for laparoscopic versus open cholecystectomy with cholangiogram. R/R/B/A d/w pt. Risks, including, but not limited to: bleeding, infection, damage to surrounding structures, risk of anesthesia, risk of open. She appears to understand, her questions are answered and she elects to proceed. Thanks for consult! KWAKU HOLDEN MD Jul 10, 2018 11:43
[2018-07-10] MEDS ORDERED: fentaNYL PF VIAL 100 MCG/2 ML VIAL IV PRN ×2 (11:45)
[2018-07-10] MEDS ORDERED: HYDROmorphone 2 MG/ML VIAL IV PRN (11:45)
[2018-07-10] MEDS ORDERED: PROCHLORPERAZINE 10 MG/2 ML VIAL. IV PRN (11:45)
[2018-07-10] MEDS ORDERED: SEVOFLURANE 61 TO 120 MINUTES. IH ONE (11:48)
[2018-07-10] MEDS ORDERED: fentaNYL PF VIAL 100 MCG/2 ML VIAL ONE (11:48)
[2018-07-10] MEDS ORDERED: GLYCOPYRROLATE 1 MG/5 ML VIAL. ONE (11:49)
[2018-07-10] MEDS ORDERED: ROCURONIUM 50 MG/5 ML VIAL. ONE (11:49)
[2018-07-10] MEDS ORDERED: NEOSTIGMINE METHYLSULFATE 5 MG/5 ML SYRINGE. ONE (11:49)
[2018-07-10] MEDS ORDERED: MIDAZOLAM HCL/PF 2 MG/2 ML VIAL. ONE (11:49)
[2018-07-10] MEDS ORDERED: ONDANSETRON PF 4 MG/2 ML VIAL. ONE (11:50)
[2018-07-10] MEDS ORDERED: LIDOCAINE 2% PF 5 ML VIAL. ONE (11:50)
[2018-07-10] MEDS ORDERED: KETOROLAC 30 MG/ML INJ FOR OR. INJ ONE (11:50)
[2018-07-10] MEDS ORDERED: PROPOFOL 20 ML IV ONE (11:50)
--- NOTE | 2018-07-10 12:00 | NUR ---
Pt arrived to unit at 1027, this nurse met Pt at 1045. No family at bedside but spouse arrived shortly after admission. Admission Dx RUQ pain and biliary colic. Pt up ad marsha, speaks [place] and [place], A&O x4 and able to make needs known. Bed in low position, call light in reach, allergies verified. Dr Huang notified of consult, he came to see Pt; consents for surgery obtained. Pt taken to surgery area by bed at noon, spouse present at time of transfer and stated he was going back home with kids and requested for this nurse to call when Pt came back to room. Admission assessment completed.
[2018-07-10] MEDS ORDERED: DEXAMETHASONE SOD PHOS 4 MG/ML VIAL ONE (12:41)
[2018-07-10] MEDS: PIPERACILLIN/TAZOBACTAM 3.375 GM in IV NORMAL SALINE 50ML 50 ML IV SCH ×3 (13:42→23:42)
[2018-07-10] MEDS: MORPHINE SULFATE 2 MG/ML VIAL. IV PRN ×4 (14:10→22:01)
[2018-07-10] MEDS ORDERED: LISI-334 PO (14:15)
[2018-07-10] MEDS: IV RINGERS,LACTATED 1000ML 1,000 ML IV SCH ×2 (15:44→23:42)
[2018-07-10] MEDS ORDERED: DEXTROSE 50% 25 GM / 50ML DISP.SYRIN. IV PRN (15:45)
[2018-07-10] MEDS ORDERED: 0.9 % SODIUM CHLORIDE 10 ML DISP.SYRIN. IV PRN (15:45)
--- NOTE | 2018-07-10 15:54 | PDOC4 ---
OPERATIVE NOTE Date: Date: Jul 10, 2018 Pre-Op Diagnosis: Calculous cholecystitis Post-Op Diagnosis: same Procedure Performed: Laparoscopic cholecystectomy with cholangiogram Surgeon: Sha Holden Anesthesia Type: GETA plus local Blood Loss: 50 Specimans Obtained: gallbladder Findings: Distended gallbladder, packed with gallstones, chronic inflammation, partially intrahepatic, normal cholangiogram Complications: none Operative Note: After obtaining informed consent, patient was taken to OR, induced under GETA and prepped in the usual fashion. 5 mm port placed umbilical and RUQ, 12 port placed epigastric, all under laparoscopic guidance. Abdominal cavity was explored and otherwise unremarkable. Patient is obese, making the procedure somewhat difficult. Liver fatty in nature. Gallbladder with chronic inflammatory changes. Adhesions taken down using sharp dissection. Critical view achieved. Cystic artery ligated with clips. Cholangiogram was obtained via cystic duct and was normal. Cystic duct ligated with clips and hemolok. Gallbladder taken off fossa using cautery and was difficult, secondary to fatty liver, partially enclosed by liver and adhesions. Gallbladder placed in bag, delivered and sent to pathology for evaluation. Epigastric port required significant enlargement, given extensive stones. Abdominal cavity copious irrigated. No evidence of bleeding at time of closure. Surgicel placed in fossa. Ports removed without bleeding. Fascia closed with running 0 vicryl. Skin repaired with 4 0 monocryl. Dressing placed. Patient tolerated procedure well and sent to PACU in stable condition. All counts correct. No immediate complications. Wound class is 3. KWAKU HOLDEN MD Jul 10, 2018 15:54
--- NOTE | 2018-07-10 19:20 | RAD ---
CHOLANGIOGRAM INTRAOPERATIVE History: Cholangiogram 2 images 0.1 MINUTES FT Comparison: None. Findings: Images from a cholangiogram are submitted demonstrating introduction of contrast into the cystic duct. No focal filling defect is identified of the common bile duct. There is contrast in the duodenum. Impression: 1. No filling defect is identified of the common bile duct. Electronically signed by: Alirio Mello MD (07/10/2018 7:18 PM) [facility]
[2018-07-10] MEDS: HYDROcodone/APAP 5/325MG 1 TAB TABLET PO PRN (20:26)
[2018-07-10] MEDS: DOCUSATE SODIUM 100 MG CAPSULE. PO SCH (20:33)
[2018-07-11 03:00] VITALS: BP 138/77
[2018-07-11] MEDS: PIPERACILLIN/TAZOBACTAM 3.375 GM in IV NORMAL SALINE 50ML 50 ML IV SCH ×3 (06:08→17:40)
[2018-07-11] MEDS: HYDROcodone/APAP 5/325MG 1 TAB TABLET PO PRN ×3 (06:09→21:11)
[2018-07-11 07:00] VITALS: BP 135/80
[2018-07-11] MEDS: DOCUSATE SODIUM 100 MG CAPSULE. PO SCH ×2 (08:15→21:00)
[2018-07-11 08:19] LABS: BASO % 0 % (0-3); EOS % 0 % (0-3); HEMOGLOBIN 11.3 g/dL (12.0-15.5); LYMPH # 2.2 x10^3/uL (1.0-4.8); LYMPH % 17 % (24-48); MEAN CORPUSCULAR HEMOGLOBIN 29 pg (25-35); MEAN CORPUSCULAR HGB CONC 32 g/dL (31-37); MEAN CORPUSCULAR VOLUME 91 fL (79-100); MONO # 0.8 x10^3/uL (0.0-1.1); MONO % 6 % (0-9); NEUT # 10.2 x10^3uL (1.8-7.7); NEUT % 77 % (31-73); PLATELET COUNT 218 x10^3/uL (140-400); RED BLOOD COUNT 3.86 x10^6/uL (3.50-5.40); RED CELL DISTRIBUTION WIDTH 13.6 % (11.5-14.5); WHITE BLOOD COUNT 13.3 x10^3/uL (4.0-11.0)
[2018-07-11 08:36] LABS: ALBUMIN 2.9 g/dL (3.4-5.0); DIRECT BILIRUBIN 0.2 mg/dL (0.0-0.2); TOTAL BILIRUBIN 0.8 mg/dL (0.2-1.0); TOTAL PROTEIN 5.9 g/dL (6.4-8.2)
[2018-07-11 11:00] VITALS: BP 138/79
[2018-07-11] MEDS: IV RINGERS,LACTATED 1000ML 1,000 ML IV SCH ×2 (12:41→23:10)
[2018-07-11] MEDS: MORPHINE SULFATE 2 MG/ML VIAL. IV PRN ×2 (13:06→21:10)
--- NOTE | 2018-07-11 13:17 | PDOC ---
PROGRESS NOTES Chief Complaint Chief Complaint cholecystitis History of Present Illness History of Present Illness Patient resting comfortably with and children at bedside. She is feeling a bit better today, still has pain. She reports that gen surgery came by and would like to keep her another day. Vitals Vitals Vital Signs Date Time Temp Pulse Resp B/P (MAP) Pulse Ox O2 Delivery O2 Flow Rate FiO2 07/11/18 11:00 98.0 55 16 138/79 (98) 95 Room Air 98.0 07/10/18 14:40 2.0 Physical Exam General: Alert, Oriented X3, Cooperative, mild distress Heart: Regular rate, Normal S1, Normal S2, No murmurs Lungs: Clear, Other (good inspiratory effort, symmetric chest expansion) Abdomen: Soft, Other (3 dressings, C/D/I) Extremities: No clubbing, No cyanosis Skin: No rashes, No breakdown Labs LABS Laboratory Tests Test 07/11/18 06:44 White Blood Count 13.3 x10^3/uL (4.0-11.0) Red Blood Count 3.86 x10^6/uL (3.50-5.40) Hemoglobin 11.3 g/dL (12.0-15.5) Hematocrit 35.0 % (36.0-47.0) Mean Corpuscular Volume 91 fL (79-100) Mean Corpuscular Hemoglobin 29 pg (25-35) Mean Corpuscular Hemoglobin Concent 32 g/dL (31-37) Red Cell Distribution Width 13.6 % (11.5-14.5) Platelet Count 218 x10^3/uL (140-400) Neutrophils (%) (Auto) 77 % (31-73) Lymphocytes (%) (Auto) 17 % (24-48) Monocytes (%) (Auto) 6 % (0-9) Eosinophils (%) (Auto) 0 % (0-3) Basophils (%) (Auto) 0 % (0-3) Neutrophils # (Auto) 10.2 x10^3uL (1.8-7.7) Lymphocytes # (Auto) 2.2 x10^3/uL (1.0-4.8) Monocytes # (Auto) 0.8 x10^3/uL (0.0-1.1) Eosinophils # (Auto) 0.0 x10^3/uL (0.0-0.7) Basophils # (Auto) 0.0 x10^3/uL (0.0-0.2) Total Bilirubin 0.8 mg/dL (0.2-1.0) Direct Bilirubin 0.2 mg/dL (0.0-0.2) Aspartate Amino Transf (AST/SGOT) 83 U/L (15-37) Alanine Aminotransferase (ALT/SGPT) 90 U/L (14-59) Alkaline Phosphatase 64 U/L (46-116) Total Protein 5.9 g/dL (6.4-8.2) Albumin 2.9 g/dL (3.4-5.0) Review of Systems Review of Systems abdominal pain, denies nausea/vomiting Assessment and Plan Assessmemt and Plan Problems Medical Problems: (1) Biliary colic Status: Acute Assessment: Calculous cholecystitis s/p lap cholecystectomy on 07/10 transaminitis Plan: Underwent cholecystectomy with cholangiogram on 07/10 LFTs trending down Antibiotics: Cefazolin 07/10 pre-op Zosyn 07/10 - Zofran prn IVF LR 100 ml/hr Pain management Recheck labs in am Dispo: Probable discharge tomorrow if okay with general surgery Comment Review of Relevant I have reviewed the following items ifrah (where applicable) has been applied. Labs Laboratory Tests Test 07/10/18 06:50 07/10/18 07:15 07/10/18 07:26 07/11/18 06:44 Urine Collection Type Unknown Urine Color Yellow Urine Clarity Clear Urine pH 6.5 Urine Specific [place] 1.025 Urine Protein Negative mg/dL (NEG-TRACE) Urine Glucose (UA) Negative mg/dL (NEG) Urine Ketones (Stick) Negative mg/dL (NEG) Urine Blood Negative (NEG) Urine Nitrite Negative (NEG) Urine Bilirubin Negative (NEG) Urine Urobilinogen Dipstick 1.0 mg/dL (0.2 mg/dL) Urine Leukocyte Esterase Negative (NEG) Urine RBC 0 /HPF (0-2) Urine WBC Occ /HPF (0-4) Urine Squamous Epithelial Cells Many /LPF Urine Bacteria 0 /HPF (0-FEW) Urine Mucus Marked /LPF White Blood Count 9.5 x10^3/uL (4.0-11.0) 13.3 x10^3/uL (4.0-11.0) Red Blood Count 4.43 x10^6/uL (3.50-5.40) 3.86 x10^6/uL (3.50-5.40) Hemoglobin 13.4 g/dL (12.0-15.5) 11.3 g/dL (12.0-15.5) Hematocrit 39.9 % (36.0-47.0) 35.0 % (36.0-47.0) Mean Corpuscular Volume 90 fL (79-100) 91 fL (79-100) Mean Corpuscular Hemoglobin 30 pg (25-35) 29 pg (25-35) Mean Corpuscular Hemoglobin Concent 34 g/dL (31-37) 32 g/dL (31-37) Red Cell Distribution Width 13.3 % (11.5-14.5) 13.6 % (11.5-14.5) Platelet Count 259 x10^3/uL (140-400) 218 x10^3/uL (140-400) Neutrophils (%) (Auto) 71 % (31-73) 77 % (31-73) Lymphocytes (%) (Auto) 22 % (24-48) 17 % (24-48) Monocytes (%) (Auto) 6 % (0-9) 6 % (0-9) Eosinophils (%) (Auto) 1 % (0-3) 0 % (0-3) Basophils (%) (Auto) 0 % (0-3) 0 % (0-3) Neutrophils # (Auto) 6.8 x10^3uL (1.8-7.7) 10.2 x10^3uL (1.8-7.7) Lymphocytes # (Auto) 2.0 x10^3/uL (1.0-4.8) 2.2 x10^3/uL (1.0-4.8) Monocytes # (Auto) 0.5 x10^3/uL (0.0-1.1) 0.8 x10^3/uL (0.0-1.1) Eosinophils # (Auto) 0.1 x10^3/uL (0.0-0.7) 0.0 x10^3/uL (0.0-0.7) Basophils # (Auto) 0.0 x10^3/uL (0.0-0.2) 0.0 x10^3/uL (0.0-0.2) Sodium Level 138 mmol/L (136-145) Potassium Level 4.3 mmol/L (3.5-5.1) Chloride Level 105 mmol/L (98-107) Carbon Dioxide Level 24 mmol/L (21-32) Anion Gap 9 (6-14) Blood Urea Nitrogen 14 mg/dL (7-20) Creatinine 0.7 mg/dL (0.6-1.0) Estimated GFR (Cockcroft-Gault) 94.2 BUN/Creatinine Ratio 20 (6-20) Glucose Level 130 mg/dL (70-99) Calcium Level 8.8 mg/dL (8.5-10.1) Total Bilirubin 0.7 mg/dL (0.2-1.0) 0.8 mg/dL (0.2-1.0) Aspartate Amino Transf (AST/SGOT) 161 U/L (15-37) 83 U/L (15-37) Alanine Aminotransferase (ALT/SGPT) 92 U/L (14-59) 90 U/L (14-59) Alkaline Phosphatase 84 U/L (46-116) 64 U/L (46-116) Total Protein 6.9 g/dL (6.4-8.2) 5.9 g/dL (6.4-8.2) Albumin 3.5 g/dL (3.4-5.0) 2.9 g/dL (3.4-5.0) Albumin/Globulin Ratio 1.0 (1.0-1.7) Lipase 100 U/L (73-393) Serum Test, Qualitative Negative (NEG) Prothrombin Time 14.4 SEC (11.7-14.0) Prothromb Time International Ratio 1.2 (0.8-1.1) Activated Partial Thromboplast Time 25 SEC (24-38) Direct Bilirubin 0.2 mg/dL (0.0-0.2) Laboratory Tests Test 07/11/18 06:44 White Blood Count 13.3 x10^3/uL (4.0-11.0) Red Blood Count 3.86 x10^6/uL (3.50-5.40) Hemoglobin 11.3 g/dL (12.0-15.5) Hematocrit 35.0 % (36.0-47.0) Mean Corpuscular Volume 91 fL (79-100) Mean Corpuscular Hemoglobin 29 pg (25-35) Mean Corpuscular Hemoglobin Concent 32 g/dL (31-37) Red Cell Distribution Width 13.6 % (11.5-14.5) Platelet Count 218 x10^3/uL (140-400) Neutrophils (%) (Auto) 77 % (31-73) Lymphocytes (%) (Auto) 17 % (24-48) Monocytes (%) (Auto) 6 % (0-9) Eosinophils (%) (Auto) 0 % (0-3) Basophils (%) (Auto) 0 % (0-3) Neutrophils # (Auto) 10.2 x10^3uL (1.8-7.7) Lymphocytes # (Auto) 2.2 x10^3/uL (1.0-4.8) Monocytes # (Auto) 0.8 x10^3/uL (0.0-1.1) Eosinophils # (Auto) 0.0 x10^3/uL (0.0-0.7) Basophils # (Auto) 0.0 x10^3/uL (0.0-0.2) Total Bilirubin 0.8 mg/dL (0.2-1.0) Direct Bilirubin 0.2 mg/dL (0.0-0.2) Aspartate Amino Transf (AST/SGOT) 83 U/L (15-37) Alanine Aminotransferase (ALT/SGPT) 90 U/L (14-59) Alkaline Phosphatase 64 U/L (46-116) Total Protein 5.9 g/dL (6.4-8.2) Albumin 2.9 g/dL (3.4-5.0) Medications Current Medications Sodium Chloride 1,000 ml @ 1,000 mls/hr Q1H IV Last administered on 07/10/18at 07:17; Start 07/10/18 at 07:07; Stop 07/10/18 at 08:06; Status DC Fentanyl Citrate (Fentanyl 2ml Vial) 50 mcg 1X ONCE IV Last administered on 07/10/18at 07:16; Start 07/10/18 at 07:15; Stop 07/10/18 at 15:36; Status DC Ondansetron HCl (Zofran) 4 mg 1X ONCE IV Last administered on 07/10/18at 07:15; Start 07/10/18 at 07:15; Stop 07/10/18 at 15:36; Status DC Fentanyl Citrate (Fentanyl 2ml Vial) 50 mcg 1X ONCE IV Last administered on 07/10/18at 08:11; Start 07/10/18 at 08:00; Stop 07/10/18 at 15:36; Status DC Ondansetron HCl (Zofran) 4 mg 1X ONCE IV ; Start 07/10/18 at 08:00; Stop 07/10/18 at 15:36; Status DC Ondansetron HCl (Zofran) 4 mg PRN Q8HRS PRN IV NAUSEA/VOMITING; Start 07/10/18 at 09:15; Stop 07/10/18 at 15:49; Status DC Fentanyl Citrate (Fentanyl 2ml Vial) 50 mcg PRN Q2HR PRN IV PAIN Last administered on 07/10/18at 14:07; Start 07/10/18 at 09:15; Stop 07/10/18 at 15 :49; Status DC Piperacillin Sod/ Tazobactam Sod 3.375 gm/Sodium Chloride 50 ml @ 100 mls/hr Q6HRS IV Last administered on 07/11/18at 06:08; Start 07/10/18 at 13:00 Piperacillin Sod/ Tazobactam Sod 3.375 gm/Sodium Chloride 50 ml @ 100 mls/hr 1X ONCE IV Last administered on 07/10/18at 09:39; Start 07/10/18 at 09:30; Stop 07/10/18 at 15:37; Status DC Ondansetron HCl (Zofran) 4 mg PRN Q6HRS PRN IV NAUSEA/VOMITING; Start 07/10/18 at 11:45; Stop 07/10/18 at 16:00; Status DC Fentanyl Citrate (Fentanyl 2ml Vial) 25 mcg PRN Q5MIN PRN IV MILD PAIN; Start 07/10/18 at 11:45; Stop 07/10/18 at 15:37; Status DC Fentanyl Citrate (Fentanyl 2ml Vial) 50 mcg PRN Q5MIN PRN IV MODERATE TO SEVERE PAIN; Start 07/10/18 at 11:45; Stop 07/10/18 at 15:37; Status DC Morphine Sulfate (Morphine Sulfate) 1 mg PRN Q10MIN PRN IV SEVERE PAIN Last administered on 07/10/18 14:29; Start 07/10/18 at 11:45; Stop 07/10/18 at 15:37; Status DC Ringer's Solution 1,000 ml @ 30 mls/hr Q24H IV ; Start 07/10/18 at 11:39; Stop 07/10/18 at 15:37; Status DC Hydromorphone HCl (Dilaudid) 0.5 mg PRN Q10MIN PRN IV SEV PAIN, Second choice; Start 07/10/18 at 11:45; Stop 07/10/18 at 15:37; Status DC Prochlorperazine Edisylate (Compazine) 5 mg PACU PRN PRN IV NAUSEA, MRX1 Last administered on 07/10/18 14:01; Start 07/10/18 at 11:45; Stop 07/10/18 at 16:00; Status DC Bupivacaine HCl/ Epinephrine Bitart (Sensorcain-Mpf Epi 0.5%-[id number]) 30 ml STK-MED ONCE .ROUTE Last administered on 07/10/18 12:39; Start 07/10/18 at 10:40; Stop 07/10/18 at 11:40; Status DC Cellulose (Surgicel Hemostat 2x3) 1 each STK-MED ONCE .ROUTE Last administered on 07/10/18 12:39; Start 07/10/18 at 10:40; Stop 07/10/18 at 15:37; Status DC Heparin Sodium (Porcine) (Heparin Sodium) 10,000 unit STK-MED ONCE .ROUTE Last administered on 07/10/18 12:39; Start 07/10/18 at 10:40; Stop 07/10/18 at 11:40; Status DC Iohexol (Omnipaque 300 Mg/ml) 50 ml STK-MED ONCE .ROUTE Last administered on 07/10/18 12:39; Start 07/10/18 at 10:40; Stop 07/10/18 at 11:40; Status DC Bisacodyl (Dulcolax Supp) 10 mg STK-MED ONCE .ROUTE Last administered on 07/10/18 12:39; Start 07/10/18 at 10:40; Stop 07/10/18 at 11:40; Status DC Sevoflurane (Ultane) 60 ml STK-MED ONCE IH ; Start 07/10/18 at 11:48; Stop 07/10/18 at 15:37; Status DC Fentanyl Citrate (Fentanyl 2ml Vial) 100 mcg STK-MED ONCE .ROUTE ; Start 07/10/18 at 11:48; Stop 07/10/18 at 11:49; Status DC Midazolam HCl (Versed) 2 mg STK-MED ONCE .ROUTE ; Start 07/10/18 at 11:49; Stop 07/10/18 at 11:50; Status DC Glycopyrrolate (Robinul) 1 mg STK-MED ONCE .ROUTE ; Start 07/10/18 at 11:49; Stop 07/10/18 at 11:50; Status DC Neostigmine Methylsulfate (Neostigmine Methylsulfate) 5 mg STK-MED ONCE .ROUTE ; Start 07/10/18 at 11:49; Stop 07/10/18 at 11:50; Status DC Rocuronium [place] (Zemuron) 50 mg STK-MED ONCE .ROUTE ; Start 07/10/18 at 11:49; Stop 07/10/18 at 15:37; Status DC Propofol 20 ml @ As Directed STK-MED ONCE IV ; Start 07/10/18 at 11:50; Stop 07/10/18 at 11:51; Status DC Lidocaine HCl (Lidocaine Pf 2% Vial) 5 ml STK-MED ONCE .ROUTE ; Start 07/10/18 at 11:50; Stop 07/10/18 at 11:51; Status DC Ondansetron HCl (Zofran) 4 mg STK-MED ONCE .ROUTE ; Start 07/10/18 at 11:50; Stop 07/10/18 at 11:51; Status DC Ketorolac Tromethamine (Toradol For Or Only) 30 mg STK-MED ONCE INJ ; Start 07/10/18 at 11:50; Stop 07/10/18 at 11:51; Status DC Cefazolin Sodium/ Dextrose 50 ml @ 100 mls/hr 1X PREOP PRN IV SEE COMMENTS Last administered on 07/10/18at 12:16; Start 07/10/18 at 12:07; Stop 07/10/18 at 15:31; Status DC Cefazolin Sodium 50 ml @ As Directed STK-MED ONCE IV ; Start 07/10/18 at 12:15; Stop 07/10/18 at 12:16; Status DC Dexamethasone Sodium Phosphate (Decadron) 4 mg STK-MED ONCE .ROUTE ; Start 07/10/18 at 12:41; Stop 07/10/18 at 12:42; Status DC Sodium Chloride (Normal Saline Flush) 3 ml QSHIFT PRN IV AFTER MEDS AND BLOOD DRAWS; Start 07/10/18 at 15:45 Ringer's Solution 1,000 ml @ 100 mls/hr Q10H IV Last administered on 07/10/18at 23:42; Start 07/10/18 at 15:44 Dextrose (Dextrose 50%-Water Syringe) 12.5 gm PRN Q15MIN PRN IV SEE COMMENTS; Start 07/10/18 at 15:45 Acetaminophen/ Hydrocodone Bitart (Lortab 5/325) 1 tab PRN Q4HRS PRN PO MILD PAIN Last administered on 07/11/18at 06:09; Start 07/10/18 at 15:45 Morphine Sulfate (Morphine Sulfate) 1 mg PRN Q1HR PRN IV PAIN Last administered on 07/10/18at 22:01; Start 07/10/18 at 15:45 Docusate Sodium (Colace) 100 mg BID PO ; Start 07/10/18 at 21:00 Ondansetron HCl (Zofran) 4 mg PRN Q6HRS PRN IV NAUESA, 1ST CHOICE; Start 07/10/18 at 15:45 Active Scripts Active Reported Lisinopril 20 Mg Tablet 1 Tab PO DAILY Vitals/I & O Vital Sign - Last 24 Hours 07/10/18 07/10/18 07/10/18 07/10/18 13:39 13:39 13:53 13:57 Temp 97.6 97.6 97.6 97.6 Pulse 81 65 Resp 27 B/P (MAP) 142/71 138/78 Pulse Ox 100 96 100 O2 Delivery Simple Mask Mask Room Air Simple Mask O2 Flow Rate 10 10 10.0 07/10/18 07/10/18 07/10/18 07/10/18 14:07 14:08 14:10 14:23 Temp 97.6 97.6 97.6 97.6 Pulse 71 61 Resp 21 15 21 16 B/P (MAP) 121/59 125/71 Pulse Ox 96 96 96 95 O2 Delivery Room Air Room Air Room Air Nasal Cannula O2 Flow Rate 2.0 07/10/18 07/10/18 07/10/18 07/10/18 14:29 14:35 14:40 14:50 Temp 98.1 98.1 Pulse 61 60 Resp 19 16 B/P (MAP) 123/74 136/84 (101) Pulse Ox 99 99 97 O2 Delivery Nasal Cannula Nasal Cannula Nasal Cannula O2 Flow Rate 2.0 2 2.0 07/10/18 07/10/18 07/10/18 07/10/18 14:59 15:00 15:08 15:23 Temp 98.2 98.2 Pulse 65 76 60 Resp 16 B/P (MAP) 133/79 (97) 126/75 (92) 133/79 (97) Pulse Ox 97 98 97 O2 Delivery Room Air Room Air 07/10/18 07/10/18 07/10/18 07/10/18 16:23 16:29 17:23 18:23 Pulse 61 63 83 B/P (MAP) 125/78 (94) 127/83 (98) 114/54 (74) Pulse Ox 96 96 94 O2 Delivery Room Air 07/10/18 07/10/18 07/10/18 07/10/18 19:00 20:15 20:26 22:01 Temp 98.9 98.9 Pulse 71 Resp 18 16 16 B/P (MAP) 124/77 (93) Pulse Ox 97 O2 Delivery Room Air Room Air Room Air Room Air 07/10/18 07/10/18 07/11/18 07/11/18 22:31 23:00 03:00 06:09 Temp 98.7 98.8 98.7 98.8 Pulse 63 63 Resp 16 18 18 16 B/P (MAP) 139/76 (97) 138/77 (97) Pulse Ox 97 96 O2 Delivery Room Air Room Air Room Air Room Air 07/11/18 07/11/18 07/11/18 07/11/18 07:00 07:10 07:45 11:00 Temp 98.7 98.0 98.7 98.0 Pulse 62 55 Resp 18 16 16 B/P (MAP) 135/80 (98) 138/79 (98) Pulse Ox 96 95 O2 Delivery Room Air Room Air Room Air Room Air Intake and Output 07/10/18 07/10/18 07/11/18 14:59 22:59 06:59 Intake Total 2450 ml 120 ml Balance 2450 ml 120 ml DEVONTE ALVAREZ III DO Jul 11, 2018 13:17
[2018-07-11 15:00] VITALS: BP 129/71
--- NOTE | 2018-07-11 15:15 | PDOC ---
SURGICAL PROGRESS NOTE Subjective Pt with some nausea and pain, april some clears Vital Signs Vital Signs Date Time Temp Pulse Resp B/P (MAP) Pulse Ox O2 Delivery O2 Flow Rate FiO2 07/11/18 13:54 Room Air 07/11/18 11:00 98.0 55 16 138/79 (98) 95 98.0 07/10/18 14:40 2.0 I&O Intake and Output 07/11/18 06:59 Intake Total 2570 ml Balance 2570 ml Intake Oral 170 ml IV Total 2400 ml # Voids 2 # Bowel Movements 1 General: Alert, Oriented X3, Cooperative, mild distress Abdomen: Soft, Other (mild TTP, dressing c/d/i) Labs Laboratory Tests Test 07/10/18 06:50 07/10/18 07:15 07/10/18 07:26 07/11/18 06:44 Urine Collection Type Unknown Urine Color Yellow Urine Clarity Clear Urine pH 6.5 Urine Specific [place] 1.025 Urine Protein Negative mg/dL (NEG-TRACE) Urine Glucose (UA) Negative mg/dL (NEG) Urine Ketones (Stick) Negative mg/dL (NEG) Urine Blood Negative (NEG) Urine Nitrite Negative (NEG) Urine Bilirubin Negative (NEG) Urine Urobilinogen Dipstick 1.0 mg/dL (0.2 mg/dL) Urine Leukocyte Esterase Negative (NEG) Urine RBC 0 /HPF (0-2) Urine WBC Occ /HPF (0-4) Urine Squamous Epithelial Cells Many /LPF Urine Bacteria 0 /HPF (0-FEW) Urine Mucus Marked /LPF White Blood Count 9.5 x10^3/uL (4.0-11.0) 13.3 x10^3/uL (4.0-11.0) Red Blood Count 4.43 x10^6/uL (3.50-5.40) 3.86 x10^6/uL (3.50-5.40) Hemoglobin 13.4 g/dL (12.0-15.5) 11.3 g/dL (12.0-15.5) Hematocrit 39.9 % (36.0-47.0) 35.0 % (36.0-47.0) Mean Corpuscular Volume 90 fL (79-100) 91 fL (79-100) Mean Corpuscular Hemoglobin 30 pg (25-35) 29 pg (25-35) Mean Corpuscular Hemoglobin Concent 34 g/dL (31-37) 32 g/dL (31-37) Red Cell Distribution Width 13.3 % (11.5-14.5) 13.6 % (11.5-14.5) Platelet Count 259 x10^3/uL (140-400) 218 x10^3/uL (140-400) Neutrophils (%) (Auto) 71 % (31-73) 77 % (31-73) Lymphocytes (%) (Auto) 22 % (24-48) 17 % (24-48) Monocytes (%) (Auto) 6 % (0-9) 6 % (0-9) Eosinophils (%) (Auto) 1 % (0-3) 0 % (0-3) Basophils (%) (Auto) 0 % (0-3) 0 % (0-3) Neutrophils # (Auto) 6.8 x10^3uL (1.8-7.7) 10.2 x10^3uL (1.8-7.7) Lymphocytes # (Auto) 2.0 x10^3/uL (1.0-4.8) 2.2 x10^3/uL (1.0-4.8) Monocytes # (Auto) 0.5 x10^3/uL (0.0-1.1) 0.8 x10^3/uL (0.0-1.1) Eosinophils # (Auto) 0.1 x10^3/uL (0.0-0.7) 0.0 x10^3/uL (0.0-0.7) Basophils # (Auto) 0.0 x10^3/uL (0.0-0.2) 0.0 x10^3/uL (0.0-0.2) Sodium Level 138 mmol/L (136-145) Potassium Level 4.3 mmol/L (3.5-5.1) Chloride Level 105 mmol/L (98-107) Carbon Dioxide Level 24 mmol/L (21-32) Anion Gap 9 (6-14) Blood Urea Nitrogen 14 mg/dL (7-20) Creatinine 0.7 mg/dL (0.6-1.0) Estimated GFR (Cockcroft-Gault) 94.2 BUN/Creatinine Ratio 20 (6-20) Glucose Level 130 mg/dL (70-99) Calcium Level 8.8 mg/dL (8.5-10.1) Total Bilirubin 0.7 mg/dL (0.2-1.0) 0.8 mg/dL (0.2-1.0) Aspartate Amino Transf (AST/SGOT) 161 U/L (15-37) 83 U/L (15-37) Alanine Aminotransferase (ALT/SGPT) 92 U/L (14-59) 90 U/L (14-59) Alkaline Phosphatase 84 U/L (46-116) 64 U/L (46-116) Total Protein 6.9 g/dL (6.4-8.2) 5.9 g/dL (6.4-8.2) Albumin 3.5 g/dL (3.4-5.0) 2.9 g/dL (3.4-5.0) Albumin/Globulin Ratio 1.0 (1.0-1.7) Lipase 100 U/L (73-393) Serum Test, Qualitative Negative (NEG) Prothrombin Time 14.4 SEC (11.7-14.0) Prothromb Time International Ratio 1.2 (0.8-1.1) Activated Partial Thromboplast Time 25 SEC (24-38) Direct Bilirubin 0.2 mg/dL (0.0-0.2) Laboratory Tests Test 07/11/18 06:44 White Blood Count 13.3 x10^3/uL (4.0-11.0) Red Blood Count 3.86 x10^6/uL (3.50-5.40) Hemoglobin 11.3 g/dL (12.0-15.5) Hematocrit 35.0 % (36.0-47.0) Mean Corpuscular Volume 91 fL (79-100) Mean Corpuscular Hemoglobin 29 pg (25-35) Mean Corpuscular Hemoglobin Concent 32 g/dL (31-37) Red Cell Distribution Width 13.6 % (11.5-14.5) Platelet Count 218 x10^3/uL (140-400) Neutrophils (%) (Auto) 77 % (31-73) Lymphocytes (%) (Auto) 17 % (24-48) Monocytes (%) (Auto) 6 % (0-9) Eosinophils (%) (Auto) 0 % (0-3) Basophils (%) (Auto) 0 % (0-3) Neutrophils # (Auto) 10.2 x10^3uL (1.8-7.7) Lymphocytes # (Auto) 2.2 x10^3/uL (1.0-4.8) Monocytes # (Auto) 0.8 x10^3/uL (0.0-1.1) Eosinophils # (Auto) 0.0 x10^3/uL (0.0-0.7) Basophils # (Auto) 0.0 x10^3/uL (0.0-0.2) Total Bilirubin 0.8 mg/dL (0.2-1.0) Direct Bilirubin 0.2 mg/dL (0.0-0.2) Aspartate Amino Transf (AST/SGOT) 83 U/L (15-37) Alanine Aminotransferase (ALT/SGPT) 90 U/L (14-59) Alkaline Phosphatase 64 U/L (46-116) Total Protein 5.9 g/dL (6.4-8.2) Albumin 2.9 g/dL (3.4-5.0) Problem List Problems Medical Problems: (1) Biliary colic Status: Acute Assessment/Plan s/p lap raji given extensive inflammatory nature of gallbladder and current symptoms, favor observation until AM KWAKU HOLDEN MD Jul 11, 2018 15:15
[2018-07-11] MEDS: LISINOPRIL 20 MG TABLET PO SCH (16:44)
[2018-07-11 19:00] VITALS: BP 127/74
[2018-07-11] MEDS: LACTOBACILLUS RHAMNOSUS GG 1 CAPSULE. PO SCH (21:10)
[2018-07-11 23:00] VITALS: BP 135/81
[2018-07-12] MEDS: PIPERACILLIN/TAZOBACTAM 3.375 GM in IV NORMAL SALINE 50ML 50 ML IV SCH ×4 (00:33→18:39)
[2018-07-12 03:00] VITALS: BP 119/74
[2018-07-12 05:43] LABS: BASO # 0.1 x10^3/uL (0.0-0.2); BASO % 1 % (0-3); EOS # 0.1 x10^3/uL (0.0-0.7); EOS % 1 % (0-3); HEMATOCRIT 32.9 % (36.0-47.0); HEMOGLOBIN 10.9 g/dL (12.0-15.5); LYMPH # 2.9 x10^3/uL (1.0-4.8); LYMPH % 30 % (24-48); MEAN CORPUSCULAR HEMOGLOBIN 30 pg (25-35); MEAN CORPUSCULAR HGB CONC 33 g/dL (31-37); MEAN CORPUSCULAR VOLUME 91 fL (79-100); MONO # 0.6 x10^3/uL (0.0-1.1); MONO % 6 % (0-9); NEUT # 5.9 x10^3uL (1.8-7.7); NEUT % 62 % (31-73); PLATELET COUNT 187 x10^3/uL (140-400); RED BLOOD COUNT 3.62 x10^6/uL (3.50-5.40); RED CELL DISTRIBUTION WIDTH 13.3 % (11.5-14.5); WHITE BLOOD COUNT 9.6 x10^3/uL (4.0-11.0)
[2018-07-12 06:11] LABS: ALBUMIN 2.9 g/dL (3.4-5.0); CREATININE 0.6 mg/dL (0.6-1.0); GFR 112.5; POTASSIUM 3.5 mmol/L (3.5-5.1); TOTAL BILIRUBIN 0.8 mg/dL (0.2-1.0); TOTAL PROTEIN 5.9 g/dL (6.4-8.2)
[2018-07-12 07:00] VITALS: BP 132/81
[2018-07-12] MEDS: DOCUSATE SODIUM 100 MG CAPSULE. PO SCH (09:32)
[2018-07-12] MEDS: LISINOPRIL 20 MG TABLET PO SCH (09:32)
[2018-07-12] MEDS: IV RINGERS,LACTATED 1000ML 1,000 ML IV SCH ×2 (09:33→17:44)
--- NOTE | 2018-07-12 09:34 | PDOC ---
SURGICAL PROGRESS NOTE Subjective emesis early this AM, however did eat some breakfast after that incisional pain, RUQ Vital Signs Vital Signs Date Time Temp Pulse Resp B/P (MAP) Pulse Ox O2 Delivery O2 Flow Rate FiO2 07/12/18 03:00 98.5 66 16 119/74 (89) 96 Room Air 98.5 I&O Intake and Output 07/12/18 07:00 # Voids 9 General: Alert, Oriented X3, Cooperative, No acute distress Abdomen: Soft, Other (ND, lap dressings dry) Labs Laboratory Tests Test 07/11/18 06:44 07/12/18 05:00 White Blood Count 13.3 x10^3/uL (4.0-11.0) 9.6 x10^3/uL (4.0-11.0) Red Blood Count 3.86 x10^6/uL (3.50-5.40) 3.62 x10^6/uL (3.50-5.40) Hemoglobin 11.3 g/dL (12.0-15.5) 10.9 g/dL (12.0-15.5) Hematocrit 35.0 % (36.0-47.0) 32.9 % (36.0-47.0) Mean Corpuscular Volume 91 fL (79-100) 91 fL (79-100) Mean Corpuscular Hemoglobin 29 pg (25-35) 30 pg (25-35) Mean Corpuscular Hemoglobin Concent 32 g/dL (31-37) 33 g/dL (31-37) Red Cell Distribution Width 13.6 % (11.5-14.5) 13.3 % (11.5-14.5) Platelet Count 218 x10^3/uL (140-400) 187 x10^3/uL (140-400) Neutrophils (%) (Auto) 77 % (31-73) 62 % (31-73) Lymphocytes (%) (Auto) 17 % (24-48) 30 % (24-48) Monocytes (%) (Auto) 6 % (0-9) 6 % (0-9) Eosinophils (%) (Auto) 0 % (0-3) 1 % (0-3) Basophils (%) (Auto) 0 % (0-3) 1 % (0-3) Neutrophils # (Auto) 10.2 x10^3uL (1.8-7.7) 5.9 x10^3uL (1.8-7.7) Lymphocytes # (Auto) 2.2 x10^3/uL (1.0-4.8) 2.9 x10^3/uL (1.0-4.8) Monocytes # (Auto) 0.8 x10^3/uL (0.0-1.1) 0.6 x10^3/uL (0.0-1.1) Eosinophils # (Auto) 0.0 x10^3/uL (0.0-0.7) 0.1 x10^3/uL (0.0-0.7) Basophils # (Auto) 0.0 x10^3/uL (0.0-0.2) 0.1 x10^3/uL (0.0-0.2) Total Bilirubin 0.8 mg/dL (0.2-1.0) 0.8 mg/dL (0.2-1.0) Direct Bilirubin 0.2 mg/dL (0.0-0.2) Aspartate Amino Transf (AST/SGOT) 83 U/L (15-37) 55 U/L (15-37) Alanine Aminotransferase (ALT/SGPT) 90 U/L (14-59) 76 U/L (14-59) Alkaline Phosphatase 64 U/L (46-116) 63 U/L (46-116) Total Protein 5.9 g/dL (6.4-8.2) 5.9 g/dL (6.4-8.2) Albumin 2.9 g/dL (3.4-5.0) 2.9 g/dL (3.4-5.0) Sodium Level 134 mmol/L (136-145) Potassium Level 3.5 mmol/L (3.5-5.1) Chloride Level 101 mmol/L (98-107) Carbon Dioxide Level 25 mmol/L (21-32) Anion Gap 8 (6-14) Blood Urea Nitrogen 10 mg/dL (7-20) Creatinine 0.6 mg/dL (0.6-1.0) Estimated GFR (Cockcroft-Gault) 112.5 BUN/Creatinine Ratio 17 (6-20) Glucose Level 80 mg/dL (70-99) Calcium Level 8.0 mg/dL (8.5-10.1) Albumin/Globulin Ratio 1.0 (1.0-1.7) Laboratory Tests Test 07/12/18 05:00 White Blood Count 9.6 x10^3/uL (4.0-11.0) Red Blood Count 3.62 x10^6/uL (3.50-5.40) Hemoglobin 10.9 g/dL (12.0-15.5) Hematocrit 32.9 % (36.0-47.0) Mean Corpuscular Volume 91 fL (79-100) Mean Corpuscular Hemoglobin 30 pg (25-35) Mean Corpuscular Hemoglobin Concent 33 g/dL (31-37) Red Cell Distribution Width 13.3 % (11.5-14.5) Platelet Count 187 x10^3/uL (140-400) Neutrophils (%) (Auto) 62 % (31-73) Lymphocytes (%) (Auto) 30 % (24-48) Monocytes (%) (Auto) 6 % (0-9) Eosinophils (%) (Auto) 1 % (0-3) Basophils (%) (Auto) 1 % (0-3) Neutrophils # (Auto) 5.9 x10^3uL (1.8-7.7) Lymphocytes # (Auto) 2.9 x10^3/uL (1.0-4.8) Monocytes # (Auto) 0.6 x10^3/uL (0.0-1.1) Eosinophils # (Auto) 0.1 x10^3/uL (0.0-0.7) Basophils # (Auto) 0.1 x10^3/uL (0.0-0.2) Sodium Level 134 mmol/L (136-145) Potassium Level 3.5 mmol/L (3.5-5.1) Chloride Level 101 mmol/L (98-107) Carbon Dioxide Level 25 mmol/L (21-32) Anion Gap 8 (6-14) Blood Urea Nitrogen 10 mg/dL (7-20) Creatinine 0.6 mg/dL (0.6-1.0) Estimated GFR (Cockcroft-Gault) 112.5 BUN/Creatinine Ratio 17 (6-20) Glucose Level 80 mg/dL (70-99) Calcium Level 8.0 mg/dL (8.5-10.1) Total Bilirubin 0.8 mg/dL (0.2-1.0) Aspartate Amino Transf (AST/SGOT) 55 U/L (15-37) Alanine Aminotransferase (ALT/SGPT) 76 U/L (14-59) Alkaline Phosphatase 63 U/L (46-116) Total Protein 5.9 g/dL (6.4-8.2) Albumin 2.9 g/dL (3.4-5.0) Albumin/Globulin Ratio 1.0 (1.0-1.7) Problem List Problems Medical Problems: (1) Biliary colic Status: Acute Assessment/Plan s/p raji monitor for any further emesis--home once resolved scripts on chart FU 2 weeks BELL MOSES APRN Jul 12, 2018 09:34
--- NOTE | 2018-07-12 10:11 | PDOC ---
PROGRESS NOTES Chief Complaint Chief Complaint cholecystitis History of Present Illness History of Present Illness Patient resting comfortably with and children at bedside. She HAS VOMITING THIS AM, NEW. Vitals Vitals Vital Signs Date Time Temp Pulse Resp B/P (MAP) Pulse Ox O2 Delivery O2 Flow Rate FiO2 07/12/18 09:32 67 132/81 07/12/18 08:00 Room Air 07/12/18 07:00 98.1 18 95 98.1 Physical Exam General: Alert, Oriented X3, Cooperative, No acute distress Heart: Regular rate, Normal S1, Normal S2, No murmurs Lungs: Clear, Other (good inspiratory effort, symmetric chest expansion) Abdomen: Normal bowel sounds, Soft, Other (ND, lap dressings dry) Extremities: No clubbing, No cyanosis Skin: No rashes, No breakdown Labs LABS Laboratory Tests Test 07/12/18 05:00 White Blood Count 9.6 x10^3/uL (4.0-11.0) Red Blood Count 3.62 x10^6/uL (3.50-5.40) Hemoglobin 10.9 g/dL (12.0-15.5) Hematocrit 32.9 % (36.0-47.0) Mean Corpuscular Volume 91 fL (79-100) Mean Corpuscular Hemoglobin 30 pg (25-35) Mean Corpuscular Hemoglobin Concent 33 g/dL (31-37) Red Cell Distribution Width 13.3 % (11.5-14.5) Platelet Count 187 x10^3/uL (140-400) Neutrophils (%) (Auto) 62 % (31-73) Lymphocytes (%) (Auto) 30 % (24-48) Monocytes (%) (Auto) 6 % (0-9) Eosinophils (%) (Auto) 1 % (0-3) Basophils (%) (Auto) 1 % (0-3) Neutrophils # (Auto) 5.9 x10^3uL (1.8-7.7) Lymphocytes # (Auto) 2.9 x10^3/uL (1.0-4.8) Monocytes # (Auto) 0.6 x10^3/uL (0.0-1.1) Eosinophils # (Auto) 0.1 x10^3/uL (0.0-0.7) Basophils # (Auto) 0.1 x10^3/uL (0.0-0.2) Sodium Level 134 mmol/L (136-145) Potassium Level 3.5 mmol/L (3.5-5.1) Chloride Level 101 mmol/L (98-107) Carbon Dioxide Level 25 mmol/L (21-32) Anion Gap 8 (6-14) Blood Urea Nitrogen 10 mg/dL (7-20) Creatinine 0.6 mg/dL (0.6-1.0) Estimated GFR (Cockcroft-Gault) 112.5 BUN/Creatinine Ratio 17 (6-20) Glucose Level 80 mg/dL (70-99) Calcium Level 8.0 mg/dL (8.5-10.1) Total Bilirubin 0.8 mg/dL (0.2-1.0) Aspartate Amino Transf (AST/SGOT) 55 U/L (15-37) Alanine Aminotransferase (ALT/SGPT) 76 U/L (14-59) Alkaline Phosphatase 63 U/L (46-116) Total Protein 5.9 g/dL (6.4-8.2) Albumin 2.9 g/dL (3.4-5.0) Albumin/Globulin Ratio 1.0 (1.0-1.7) Assessment and Plan Assessmemt and Plan Problems Medical Problems: (1) Biliary colic Status: Acute Comment Review of Relevant I have reviewed the following items ifrah (where applicable) has been applied. Labs Laboratory Tests Test 07/11/18 06:44 07/12/18 05:00 White Blood Count 13.3 x10^3/uL (4.0-11.0) 9.6 x10^3/uL (4.0-11.0) Red Blood Count 3.86 x10^6/uL (3.50-5.40) 3.62 x10^6/uL (3.50-5.40) Hemoglobin 11.3 g/dL (12.0-15.5) 10.9 g/dL (12.0-15.5) Hematocrit 35.0 % (36.0-47.0) 32.9 % (36.0-47.0) Mean Corpuscular Volume 91 fL (79-100) 91 fL (79-100) Mean Corpuscular Hemoglobin 29 pg (25-35) 30 pg (25-35) Mean Corpuscular Hemoglobin Concent 32 g/dL (31-37) 33 g/dL (31-37) Red Cell Distribution Width 13.6 % (11.5-14.5) 13.3 % (11.5-14.5) Platelet Count 218 x10^3/uL (140-400) 187 x10^3/uL (140-400) Neutrophils (%) (Auto) 77 % (31-73) 62 % (31-73) Lymphocytes (%) (Auto) 17 % (24-48) 30 % (24-48) Monocytes (%) (Auto) 6 % (0-9) 6 % (0-9) Eosinophils (%) (Auto) 0 % (0-3) 1 % (0-3) Basophils (%) (Auto) 0 % (0-3) 1 % (0-3) Neutrophils # (Auto) 10.2 x10^3uL (1.8-7.7) 5.9 x10^3uL (1.8-7.7) Lymphocytes # (Auto) 2.2 x10^3/uL (1.0-4.8) 2.9 x10^3/uL (1.0-4.8) Monocytes # (Auto) 0.8 x10^3/uL (0.0-1.1) 0.6 x10^3/uL (0.0-1.1) Eosinophils # (Auto) 0.0 x10^3/uL (0.0-0.7) 0.1 x10^3/uL (0.0-0.7) Basophils # (Auto) 0.0 x10^3/uL (0.0-0.2) 0.1 x10^3/uL (0.0-0.2) Total Bilirubin 0.8 mg/dL (0.2-1.0) 0.8 mg/dL (0.2-1.0) Direct Bilirubin 0.2 mg/dL (0.0-0.2) Aspartate Amino Transf (AST/SGOT) 83 U/L (15-37) 55 U/L (15-37) Alanine Aminotransferase (ALT/SGPT) 90 U/L (14-59) 76 U/L (14-59) Alkaline Phosphatase 64 U/L (46-116) 63 U/L (46-116) Total Protein 5.9 g/dL (6.4-8.2) 5.9 g/dL (6.4-8.2) Albumin 2.9 g/dL (3.4-5.0) 2.9 g/dL (3.4-5.0) Sodium Level 134 mmol/L (136-145) Potassium Level 3.5 mmol/L (3.5-5.1) Chloride Level 101 mmol/L (98-107) Carbon Dioxide Level 25 mmol/L (21-32) Anion Gap 8 (6-14) Blood Urea Nitrogen 10 mg/dL (7-20) Creatinine 0.6 mg/dL (0.6-1.0) Estimated GFR (Cockcroft-Gault) 112.5 BUN/Creatinine Ratio 17 (6-20) Glucose Level 80 mg/dL (70-99) Calcium Level 8.0 mg/dL (8.5-10.1) Albumin/Globulin Ratio 1.0 (1.0-1.7) Laboratory Tests Test 07/12/18 05:00 White Blood Count 9.6 x10^3/uL (4.0-11.0) Red Blood Count 3.62 x10^6/uL (3.50-5.40) Hemoglobin 10.9 g/dL (12.0-15.5) Hematocrit 32.9 % (36.0-47.0) Mean Corpuscular Volume 91 fL (79-100) Mean Corpuscular Hemoglobin 30 pg (25-35) Mean Corpuscular Hemoglobin Concent 33 g/dL (31-37) Red Cell Distribution Width 13.3 % (11.5-14.5) Platelet Count 187 x10^3/uL (140-400) Neutrophils (%) (Auto) 62 % (31-73) Lymphocytes (%) (Auto) 30 % (24-48) Monocytes (%) (Auto) 6 % (0-9) Eosinophils (%) (Auto) 1 % (0-3) Basophils (%) (Auto) 1 % (0-3) Neutrophils # (Auto) 5.9 x10^3uL (1.8-7.7) Lymphocytes # (Auto) 2.9 x10^3/uL (1.0-4.8) Monocytes # (Auto) 0.6 x10^3/uL (0.0-1.1) Eosinophils # (Auto) 0.1 x10^3/uL (0.0-0.7) Basophils # (Auto) 0.1 x10^3/uL (0.0-0.2) Sodium Level 134 mmol/L (136-145) Potassium Level 3.5 mmol/L (3.5-5.1) Chloride Level 101 mmol/L (98-107) Carbon Dioxide Level 25 mmol/L (21-32) Anion Gap 8 (6-14) Blood Urea Nitrogen 10 mg/dL (7-20) Creatinine 0.6 mg/dL (0.6-1.0) Estimated GFR (Cockcroft-Gault) 112.5 BUN/Creatinine Ratio 17 (6-20) Glucose Level 80 mg/dL (70-99) Calcium Level 8.0 mg/dL (8.5-10.1) Total Bilirubin 0.8 mg/dL (0.2-1.0) Aspartate Amino Transf (AST/SGOT) 55 U/L (15-37) Alanine Aminotransferase (ALT/SGPT) 76 U/L (14-59) Alkaline Phosphatase 63 U/L (46-116) Total Protein 5.9 g/dL (6.4-8.2) Albumin 2.9 g/dL (3.4-5.0) Albumin/Globulin Ratio 1.0 (1.0-1.7) Medications Current Medications Sodium Chloride 1,000 ml @ 1,000 mls/hr Q1H IV Last administered on 07/10/18at 07:17; Start 07/10/18 at 07:07; Stop 07/10/18 at 08:06; Status DC Fentanyl Citrate (Fentanyl 2ml Vial) 50 mcg 1X ONCE IV Last administered on 07/10/18at 07:16; Start 07/10/18 at 07:15; Stop 07/10/18 at 15:36; Status DC Ondansetron HCl (Zofran) 4 mg 1X ONCE IV Last administered on 07/10/18at 07:15; Start 07/10/18 at 07:15; Stop 07/10/18 at 15:36; Status DC Fentanyl Citrate (Fentanyl 2ml Vial) 50 mcg 1X ONCE IV Last administered on 07/10/18at 08:11; Start 07/10/18 at 08:00; Stop 07/10/18 at 15:36; Status DC Ondansetron HCl (Zofran) 4 mg 1X ONCE IV ; Start 07/10/18 at 08:00; Stop 07/10/18 at 15:36; Status DC Ondansetron HCl (Zofran) 4 mg PRN Q8HRS PRN IV NAUSEA/VOMITING; Start 07/10/18 at 09:15; Stop 07/10/18 at 15:49; Status DC Fentanyl Citrate (Fentanyl 2ml Vial) 50 mcg PRN Q2HR PRN IV PAIN Last administered on 07/10/18at 14:07; Start 07/10/18 at 09:15; Stop 07/10/18 at 15:49; Status DC Piperacillin Sod/ Tazobactam Sod 3.375 gm/Sodium Chloride 50 ml @ 100 mls/hr Q6HRS IV Last administered on 07/12/18at 05:26; Start 07/10/18 at 13:00 Piperacillin Sod/ Tazobactam Sod 3.375 gm/Sodium Chloride 50 ml @ 100 mls/hr 1X ONCE IV Last administered on 07/10/18at 09:39; Start 07/10/18 at 09:30; Stop 07/10/18 at 15:37; Status DC Ondansetron HCl (Zofran) 4 mg PRN Q6HRS PRN IV NAUSEA/VOMITING; Start 07/10/18 at 11:45; Stop 07/10/18 at 16:00; Status DC Fentanyl Citrate (Fentanyl 2ml Vial) 25 mcg PRN Q5MIN PRN IV MILD PAIN; Start 07/10/18 at 11:45; Stop 07/10/18 at 15:37; Status DC Fentanyl Citrate (Fentanyl 2ml Vial) 50 mcg PRN Q5MIN PRN IV MODERATE TO SEVERE PAIN; Start 07/10/18 at 11:45; Stop 07/10/18 at 15:37; Status DC Morphine Sulfate (Morphine Sulfate) 1 mg PRN Q10MIN PRN IV SEVERE PAIN Last administered on 07/10/18at 14:29; Start 07/10/18 at 11:45; Stop 07/10/18 at 15:37; Status DC Ringer's Solution 1,000 ml @ 30 mls/hr Q24H IV ; Start 07/10/18 at 11:39; Stop 07/10/18 at 15:37; Status DC Hydromorphone HCl (Dilaudid) 0.5 mg PRN Q10MIN PRN IV SEV PAIN, Second choice; Start 07/10/18 at 11:45; Stop 07/10/18 at 15:37; Status DC Prochlorperazine Edisylate (Compazine) 5 mg PACU PRN PRN IV NAUSEA, MRX1 Last administered on 07/10/18at 14:01; Start 07/10/18 at 11:45; Stop 07/10/18 at 16:00; Status DC Bupivacaine HCl/ Epinephrine Bitart (Sensorcain-Mpf Epi 0.5%-1:[id number]) 30 ml STK-MED ONCE .ROUTE Last administered on 07/10/18 12:39; Start 07/10/18 at 10:40; Stop 07/10/18 at 11:40; Status DC Cellulose (Surgicel Hemostat 2x3) 1 each STK-MED ONCE .ROUTE Last administered on 07/10/18 12:39; Start 07/10/18 at 10:40; Stop 07/10/18 at 15:37; Status DC Heparin Sodium (Porcine) (Heparin Sodium) 10,000 unit STK-MED ONCE .ROUTE Last administered on 07/10/18at 12:39; Start 07/10/18 at 10:40; Stop 07/10/18 at 11:40; Status DC Iohexol (Omnipaque 300 Mg/ml) 50 ml STK-MED ONCE .ROUTE Last administered on 07/10/18 12:39; Start 07/10/18 at 10:40; Stop 07/10/18 at 11:40; Status DC Bisacodyl (Dulcolax Supp) 10 mg STK-MED ONCE .ROUTE Last administered on 07/10/18 12:39; Start 07/10/18 at 10:40; Stop 07/10/18 at 11:40; Status DC Sevoflurane (Ultane) 60 ml STK-MED ONCE IH ; Start 07/10/18 at 11:48; Stop 07/10/18 at 15:37; Status DC Fentanyl Citrate (Fentanyl 2ml Vial) 100 mcg STK-MED ONCE .ROUTE ; Start 07/10/18 at 11:48; Stop 07/10/18 at 11:49; Status DC Midazolam HCl (Versed) 2 mg STK-MED ONCE .ROUTE ; Start 07/10/18 at 11:49; Stop 07/10/18 at 11:50; Status DC Glycopyrrolate (Robinul) 1 mg STK-MED ONCE .ROUTE ; Start 07/10/18 at 11:49; Stop 07/10/18 at 11:50; Status DC Neostigmine Methylsulfate (Neostigmine Methylsulfate) 5 mg STK-MED ONCE .ROUTE ; Start 07/10/18 at 11:49; Stop 07/10/18 at 11:50; Status DC Rocuronium [place] (Zemuron) 50 mg STK-MED ONCE .ROUTE ; Start 07/10/18 at 11:49; Stop 07/10/18 at 15:37; Status DC Propofol 20 ml @ As Directed STK-MED ONCE IV ; Start 07/10/18 at 11:50; Stop 07/10/18 at 11:51; Status DC Lidocaine HCl (Lidocaine Pf 2% Vial) 5 ml STK-MED ONCE .ROUTE ; Start 07/10/18 at 11:50; Stop 07/10/18 at 11:51; Status DC Ondansetron HCl (Zofran) 4 mg STK-MED ONCE .ROUTE ; Start 07/10/18 at 11:50; Stop 07/10/18 at 11:51; Status DC Ketorolac Tromethamine (Toradol For Or Only) 30 mg STK-MED ONCE INJ ; Start 07/10/18 at 11:50; Stop 07/10/18 at 11:51; Status DC Cefazolin Sodium/ Dextrose 50 ml @ 100 mls/hr 1X PREOP PRN IV SEE COMMENTS Last administered on 07/10/18at 12:16; Start 07/10/18 at 12:07; Stop 07/10/18 at 15:31; Status DC Cefazolin Sodium 50 ml @ As Directed STK-MED ONCE IV ; Start 07/10/18 at 12:15; Stop 07/10/18 at 12:16; Status DC Dexamethasone Sodium Phosphate (Decadron) 4 mg STK-MED ONCE .ROUTE ; Start 07/10/18 at 12:41; Stop 07/10/18 at 12:42; Status DC Sodium Chloride (Normal Saline Flush) 3 ml QSHIFT PRN IV AFTER MEDS AND BLOOD DRAWS; Start 07/10/18 at 15:45 Ringer's Solution 1,000 ml @ 100 mls/hr Q10H IV Last administered on 07/12/18 09:33; Start 07/10/18 at 15:44 Dextrose (Dextrose 50%-Water Syringe) 12.5 gm PRN Q15MIN PRN IV SEE COMMENTS; Start 07/10/18 at 15:45 Acetaminophen/ Hydrocodone Bitart (Lortab 5/325) 1 tab PRN Q4HRS PRN PO MILD PAIN Last administered on 07/11/18 21:11; Start 07/10/18 at 15:45 Morphine Sulfate (Morphine Sulfate) 1 mg PRN Q1HR PRN IV PAIN Last administered on 07/11/18 21:10; Start 07/10/18 at 15:45 Docusate Sodium (Colace) 100 mg BID PO Last administered on 07/12/18 09:32; Start 07/10/18 at 21:00 Ondansetron HCl (Zofran) 4 mg PRN Q6HRS PRN IV NAUESA, 1ST CHOICE; Start 07/10/18 at 15:45 Lactobacillus Rhamnosus (Culturelle) 1 cap BID PO Last administered on 07/11/18 21:10; Start 07/11/18 at 21:00 Lisinopril (Prinivil) 20 mg DAILY PO Last administered on 07/12/18 09:32; Start 07/11/18 at 17:00 Active Scripts Active Reported Lisinopril 20 Mg Tablet 1 Tab PO DAILY Vitals/I & O Vital Sign - Last 24 Hours 07/11/18 07/11/18 07/11/18 07/11/18 11:00 13:06 13:08 15:00 Temp 98.0 98.2 98.0 98.2 Pulse 55 74 Resp 16 16 B/P (MAP) 138/79 (98) 129/71 (90) Pulse Ox 95 96 O2 Delivery Room Air Room Air Room Air Room Air 07/11/18 07/11/18 07/11/18 07/11/18 19:00 20:00 21:10 21:11 Temp 98.9 98.9 Pulse 72 Resp 16 B/P (MAP) 127/74 (91) Pulse Ox 96 O2 Delivery Room Air Room Air Room Air Room Air 07/11/18 07/11/18 07/11/18 07/12/18 21:51 22:11 23:00 03:00 Temp 98.5 98.5 98.5 98.5 Pulse 70 66 Resp 16 16 B/P (MAP) 135/81 (99) 119/74 (89) Pulse Ox 96 96 O2 Delivery Room Air Room Air Room Air Room Air 07/12/18 07/12/18 07/12/18 07:00 08:00 09:32 Temp 98.1 98.1 Pulse 67 67 Resp 18 B/P (MAP) 132/81 (98) 132/81 Pulse Ox 95 O2 Delivery Room Air Room Air BERNARDO MCLEOD MD Jul 12, 2018 10:11
--- NOTE | 2018-07-12 11:40 | NUR ---
SW following for discharge planning. Discussed with RN, pt is from home. RN advised no SW needs, pt could possibly discharge home with self care today.
[2018-07-12] MEDS: LACTOBACILLUS RHAMNOSUS GG 1 CAPSULE. PO SCH (11:41)
[2018-07-12] MEDS ORDERED: ACETAMINOPHEN 325 MG TABLET. PO PRN (12:00)
[2018-07-12 15:00] VITALS: BP 121/79
--- NOTE | 2018-07-12 19:25 | PDOC3 ---
Discharge Summary Date of Admission: Jul 10, 2018 Date of Discharge: Jul 12, 2018 Follow-Up: 3-5 days Admitting Diagnosis comment: discharge dx cholecystitis, acute History of Present Illness History of Present Illness Patient resting comfortably with and children at bedside. She HAS VOMITING THIS AM, NEW. now resolved Vitals Vitals Vital Signs Date Time Temp Pulse Resp B/P (MAP) Pulse Ox O2 Delivery O2 Flow Rate FiO2 07/12/18 09:32 67 132/81 07/12/18 08:00 Room Air 07/12/18 07:00 98.1 18 95 98.1 Physical Exam General: Alert, Oriented X3, Cooperative, No acute distress Heart: Regular rate, Normal S1, Normal S2, No murmurs Lungs: Clear, Other (good inspiratory effort, symmetric chest expansion) Abdomen: Normal bowel sounds, Soft, Other (ND, lap dressings dry) Extremities: No clubbing, No cyanosis Skin: No rashes, No breakdown FINAL DIAGNOSIS Problems Medical Problems: (1) Biliary colic Status: Acute Brief Hospital Course Ms. Ashton is a 38 old [sex] who presented with [acute cholecystitis ] CONDITION AT DISCHARGE: Improved Discharge Medications Current Medications Sodium Chloride 1,000 ml @ 1,000 mls/hr Q1H IV Last administered on 07/10/18at 07:17; Start 07/10/18 at 07:07; Stop 07/10/18 at 08:06; Status DC Fentanyl Citrate (Fentanyl 2ml Vial) 50 mcg 1X ONCE IV Last administered on 07/10/18at 07:16; Start 07/10/18 at 07:15; Stop 07/10/18 at 15:36; Status DC Ondansetron HCl (Zofran) 4 mg 1X ONCE IV Last administered on 07/10/18at 07:15; Start 07/10/18 at 07:15; Stop 07/10/18 at 15:36; Status DC Fentanyl Citrate (Fentanyl 2ml Vial) 50 mcg 1X ONCE IV Last administered on at 08:11; Start 07/10/18 at 08:00; Stop 07/10/18 at 15:36; Status DC Ondansetron HCl (Zofran) 4 mg 1X ONCE IV ; Start 07/10/18 at 08:00; Stop 07/10/18 at 15:36; Status DC Ondansetron HCl (Zofran) 4 mg PRN Q8HRS PRN IV NAUSEA/VOMITING; Start 07/10/18 at 09:15; Stop 07/10/18 at 15:49; Status DC Fentanyl Citrate (Fentanyl 2ml Vial) 50 mcg PRN Q2HR PRN IV PAIN Last administe red on 07/10/18at 14:07; Start 07/10/18 at 09:15; Stop 07/10/18 at 15:49; Status DC Piperacillin Sod/ Tazobactam Sod 3.375 gm/Sodium Chloride 50 ml @ 100 mls/hr Q6HRS IV Last administered on 07/12/18at 18:39; Start 07/10/18 at 13:00 Piperacillin Sod/ Tazobactam Sod 3.375 gm/Sodium Chloride 50 ml @ 100 mls/hr 1X ONCE IV Last administered on 07/10/18at 09:39; Start 07/10/18 at 09:30; Stop 07/10/18 at 15:37; Status DC Ondansetron HCl (Zofran) 4 mg PRN Q6HRS PRN IV NAUSEA/VOMITING; Start 07/10/18 at 11:45; Stop 07/10/18 at 16:00; Status DC Fentanyl Citrate (Fentanyl 2ml Vial) 25 mcg PRN Q5MIN PRN IV MILD PAIN; Start 07/10/18 at 11:45; Stop 07/10/18 at 15:37; Status DC Fentanyl Citrate (Fentanyl 2ml Vial) 50 mcg PRN Q5MIN PRN IV MODERATE TO SEVERE PAIN; Start 07/10/18 at 11:45; Stop 07/10/18 at 15:37; Status DC Morphine Sulfate (Morphine Sulfate) 1 mg PRN Q10MIN PRN IV SEVERE PAIN Last administered on 07/10/18at 14:29; Start 07/10/18 at 11:45; Stop 07/10/18 at 15:37; Status DC Ringer's Solution 1,000 ml @ 30 mls/hr Q24H IV ; Start 07/10/18 at 11:39; Stop 07/10/18 at 15:37; Status DC Hydromorphone HCl (Dilaudid) 0.5 mg PRN Q10MIN PRN IV SEV PAIN, Second choice; Start 07/10/18 at 11:45; Stop 07/10/18 at 15:37; Status DC Prochlorperazine Edisylate (Compazine) 5 mg PACU PRN PRN IV NAUSEA, MRX1 Last administered on 07/10/18at 14:01; Start 07/10/18 at 11:45; Stop 07/10/18 at 16:00; Status DC Bupivacaine HCl/ Epinephrine Bitart (Sensorcain-Mpf Epi 0.5%-1:[id number]) 30 ml STK-MED ONCE .ROUTE Last administered on 07/10/18at 12:39; Start 07/10/18 at 10:40; Stop 07/10/18 at 11:40; Status DC Cellulose (Surgicel Hemostat 2x3) 1 each STK-MED ONCE .ROUTE Last administered on 07/10/18at 12:39; Start 07/10/18 at 10:40; Stop 07/10/18 at 15:37; Status DC Heparin Sodium (Porcine) (Heparin Sodium) 10,000 unit STK-MED ONCE .ROUTE Last administered on 07/10/18at 12:39; Start 07/10/18 at 10:40; Stop 07/10/18 at 11:40; Status DC Iohexol (Omnipaque 300 Mg/ml) 50 ml STK-MED ONCE .ROUTE Last administered on 07/10/18at 12:39; Start 07/10/18 at 10:40; Stop 07/10/18 at 11:40; Status DC Bisacodyl (Dulcolax Supp) 10 mg STK-MED ONCE .ROUTE Last administered on 07/10/18at 12:39; Start 07/10/18 at 10:40; Stop 07/10/18 at 11:40; Status DC Sevoflurane (Ultane) 60 ml STK-MED ONCE IH ; Start 07/10/18 at 11:48; Stop 07/10/18 at 15:37; Status DC Fentanyl Citrate (Fentanyl 2ml Vial) 100 mcg STK-MED ONCE .ROUTE ; Start 07/10/18 at 11:48; Stop 07/10/18 at 11:49; Status DC Midazolam HCl (Versed) 2 mg STK-MED ONCE .ROUTE ; Start 07/10/18 at 11:49; Stop 07/10/18 at 11:50; Status DC Glycopyrrolate (Robinul) 1 mg STK-MED ONCE .ROUTE ; Start 07/10/18 at 11:49; Stop 07/10/18 at 11:50; Status DC Neostigmine Methylsulfate (Neostigmine Methylsulfate) 5 mg STK-MED ONCE .ROUTE ; Start 07/10/18 at 11:49; Stop 07/10/18 at 11:50; Status DC Rocuronium [place] (Zemuron) 50 mg STK-MED ONCE .ROUTE ; Start 07/10/18 at 11:49; Stop 07/10/18 at 15:37; Status DC Propofol 20 ml @ As Directed STK-MED ONCE IV ; Start 07/10/18 at 11:50; Stop 07/10/18 at 11:51; Status DC Lidocaine HCl (Lidocaine Pf 2% Vial) 5 ml STK-MED ONCE .ROUTE ; Start 07/10/18 at 11:50; Stop 07/10/18 at 11:51; Status DC Ondansetron HCl (Zofran) 4 mg STK-MED ONCE .ROUTE ; Start 07/10/18 at 11:50; Stop 07/10/18 at 11:51; Status DC Ketorolac Tromethamine (Toradol For Or Only) 30 mg STK-MED ONCE INJ ; Start 07/10/18 at 11:50; Stop 07/10/18 at 11:51; Status DC Cefazolin Sodium/ Dextrose 50 ml @ 100 mls/hr 1X PREOP PRN IV SEE COMMENTS Last administered on 07/10/18at 12:16; Start 07/10/18 at 12:07; Stop 07/10/18 at 15:31; Status DC Cefazolin Sodium 50 ml @ As Directed STK-MED ONCE IV ; Start 07/10/18 at 12:15; Stop 07/10/18 at 12:16; Status DC Dexamethasone Sodium Phosphate (Decadron) 4 mg STK-MED ONCE .ROUTE ; Start 07/10/18 at 12:41; Stop 07/10/18 at 12:42; Status DC Sodium Chloride (Normal Saline Flush) 3 ml QSHIFT PRN IV AFTER MEDS AND BLOOD DRAWS; Start 07/10/18 at 15:45 Ringer's Solution 1,000 ml @ 100 mls/hr Q10H IV Last administered on 07/12/18 09:33; Start 07/10/18 at 15:44 Dextrose (Dextrose 50%-Water Syringe) 12.5 gm PRN Q15MIN PRN IV SEE COMMENTS; Start 07/10/18 at 15:45 Acetaminophen/ Hydrocodone Bitart (Lortab 5/325) 1 tab PRN Q4HRS PRN PO MILD PAIN Last administered on 07/11/18 21:11; Start 07/10/18 at 15:45 Morphine Sulfate (Morphine Sulfate) 1 mg PRN Q1HR PRN IV PAIN Last administered on 07/11/18 21:10; Start 07/10/18 at 15:45 Docusate Sodium (Colace) 100 mg BID PO Last administered on 07/12/18 09:32; Start 07/10/18 at 21:00 Ondansetron HCl (Zofran) 4 mg PRN Q6HRS PRN IV NAUESA, 1ST CHOICE; Start 07/10/18 at 15:45 Lactobacillus Rhamnosus (Culturelle) 1 cap BID PO Last administered on 07/12/18 11:41; Start 07/11/18 at 21:00 Lisinopril (Prinivil) 20 mg DAILY PO Last administered on 07/12/18 09:32; Start 07/11/18 at 17:00 Acetaminophen (Tylenol) 650 mg PRN Q6HRS PRN PO MILD PAIN / TEMP Last administered on 07/12/18at 12:10; Start 07/12/18 at 12:00 Active Scripts Active Reported Lisinopril 20 Mg Tablet 1 Tab PO DAILY Vital Signs Vital Signs Date Time Temp Pulse Resp B/P (MAP) Pulse Ox O2 Delivery O2 Flow Rate FiO2 07/12/18 15:00 98.5 77 18 121/79 (93) 98 Room Air 98.5 Labs Laboratory Tests Test 07/11/18 06:44 07/12/18 05:00 White Blood Count 13.3 x10^3/uL (4.0-11.0) 9.6 x10^3/uL (4.0-11.0) Red Blood Count 3.86 x10^6/uL (3.50-5.40) 3.62 x10^6/uL (3.50-5.40) Hemoglobin 11.3 g/dL (12.0-15.5) 10.9 g/dL (12.0-15.5) Hematocrit 35.0 % (36.0-47.0) 32.9 % (36.0-47.0) Mean Corpuscular Volume 91 fL (79-100) 91 fL (79-100) Mean Corpuscular Hemoglobin 29 pg (25-35) 30 pg (25-35) Mean Corpuscular Hemoglobin Concent 32 g/dL (31-37) 33 g/dL (31-37) Red Cell Distribution Width 13.6 % (11.5-14.5) 13.3 % (11.5-14.5) Platelet Count 218 x10^3/uL (140-400) 187 x10^3/uL (140-400) Neutrophils (%) (Auto) 77 % (31-73) 62 % (31-73) Lymphocytes (%) (Auto) 17 % (24-48) 30 % (24-48) Monocytes (%) (Auto) 6 % (0-9) 6 % (0-9) Eosinophils (%) (Auto) 0 % (0-3) 1 % (0-3) Basophils (%) (Auto) 0 % (0-3) 1 % (0-3) Neutrophils # (Auto) 10.2 x10^3uL (1.8-7.7) 5.9 x10^3uL (1.8-7.7) Lymphocytes # (Auto) 2.2 x10^3/uL (1.0-4.8) 2.9 x10^3/uL (1.0-4.8) Monocytes # (Auto) 0.8 x10^3/uL (0.0-1.1) 0.6 x10^3/uL (0.0-1.1) Eosinophils # (Auto) 0.0 x10^3/uL (0.0-0.7) 0.1 x10^3/uL (0.0-0.7) Basophils # (Auto) 0.0 x10^3/uL (0.0-0.2) 0.1 x10^3/uL (0.0-0.2) Total Bilirubin 0.8 mg/dL (0.2-1.0) 0.8 mg/dL (0.2-1.0) Direct Bilirubin 0.2 mg/dL (0.0-0.2) Aspartate Amino Transf (AST/SGOT) 83 U/L (15-37) 55 U/L (15-37) Alanine Aminotransferase (ALT/SGPT) 90 U/L (14-59) 76 U/L (14-59) Alkaline Phosphatase 64 U/L (46-116) 63 U/L (46-116) Total Protein 5.9 g/dL (6.4-8.2) 5.9 g/dL (6.4-8.2) Albumin 2.9 g/dL (3.4-5.0) 2.9 g/dL (3.4-5.0) Sodium Level 134 mmol/L (136-145) Potassium Level 3.5 mmol/L (3.5-5.1) Chloride Level 101 mmol/L (98-107) Carbon Dioxide Level 25 mmol/L (21-32) Anion Gap 8 (6-14) Blood Urea Nitrogen 10 mg/dL (7-20) Creatinine 0.6 mg/dL (0.6-1.0) Estimated GFR (Cockcroft-Gault) 112.5 BUN/Creatinine Ratio 17 (6-20) Glucose Level 80 mg/dL (70-99) Calcium Level 8.0 mg/dL (8.5-10.1) Albumin/Globulin Ratio 1.0 (1.0-1.7) Laboratory Tests Test 07/12/18 05:00 White Blood Count 9.6 x10^3/uL (4.0-11.0) Red Blood Count 3.62 x10^6/uL (3.50-5.40) Hemoglobin 10.9 g/dL (12.0-15.5) Hematocrit 32.9 % (36.0-47.0) Mean Corpuscular Volume 91 fL (79-100) Mean Corpuscular Hemoglobin 30 pg (25-35) Mean Corpuscular Hemoglobin Concent 33 g/dL (31-37) Red Cell Distribution Width 13.3 % (11.5-14.5) Platelet Count 187 x10^3/uL (140-400) Neutrophils (%) (Auto) 62 % (31-73) Lymphocytes (%) (Auto) 30 % (24-48) Monocytes (%) (Auto) 6 % (0-9) Eosinophils (%) (Auto) 1 % (0-3) Basophils (%) (Auto) 1 % (0-3) Neutrophils # (Auto) 5.9 x10^3uL (1.8-7.7) Lymphocytes # (Auto) 2.9 x10^3/uL (1.0-4.8) Monocytes # (Auto) 0.6 x10^3/uL (0.0-1.1) Eosinophils # (Auto) 0.1 x10^3/uL (0.0-0.7) Basophils # (Auto) 0.1 x10^3/uL (0.0-0.2) Sodium Level 134 mmol/L (136-145) Potassium Level 3.5 mmol/L (3.5-5.1) Chloride Level 101 mmol/L (98-107) Carbon Dioxide Level 25 mmol/L (21-32) Anion Gap 8 (6-14) Blood Urea Nitrogen 10 mg/dL (7-20) Creatinine 0.6 mg/dL (0.6-1.0) Estimated GFR (Cockcroft-Gault) 112.5 BUN/Creatinine Ratio 17 (6-20) Glucose Level 80 mg/dL (70-99) Calcium Level 8.0 mg/dL (8.5-10.1) Total Bilirubin 0.8 mg/dL (0.2-1.0) Aspartate Amino Transf (AST/SGOT) 55 U/L (15-37) Alanine Aminotransferase (ALT/SGPT) 76 U/L (14-59) Alkaline Phosphatase 63 U/L (46-116) Total Protein 5.9 g/dL (6.4-8.2) Albumin 2.9 g/dL (3.4-5.0) Albumin/Globulin Ratio 1.0 (1.0-1.7) Allergies Allergies Coded Allergies Type Severity Reaction Last Updated Verified No Known Drug Allergies 10/06/14 No Disposition/Orders: D/C to Home Patient Instructions d/c planning 33 min BERNARDO MCLEOD MD Jul 12, 2018 19:25
[2018-07-12] MEDS ORDERED: LACT1CAP19 PO (19:28)
[2018-07-12] MEDS ORDERED: HYDR-2761 PO (19:28)
[2018-07-12] MEDS ORDERED: ACET325T9 PO (19:28)
[2018-07-12] MEDS ORDERED: AMOX1TAB58 PO (19:28)
--- NOTE | 2018-07-12 19:30 | DISCH ---
DISCHARGE INSTRUCTIONS Condition on Discharge Condition on Discharge: Stable Activity After Discharge Activity Instructions for Disc: Activity as tolerated Lifting Instructions after Dis: No heavy lifting, No pulling or pushing, Do not lift >10 pounds Exercise Instruction after Dis: Walk 15 min, 3 x per day Driving Instructions after Dis: Do not drive, Do not drive today, No driving for 2 weeks Weight Bearing Status after Di: Full weight bearing, As tolerated Diet after Discharge Diet after Discharge: Regular Diet Texture: Regular Wound Incision Care Wound/Incision Care: May get incision wet Checks after Discharge Checks after discharge: Check your Temp as needed Contacting the DR. after DC Call your doctor for: If your condition worsens Treatment/Equipment after DC Adaptive Equipment Issued: None BERNARDO MCLEOD MD Jul 12, 2018 19:30
--- NOTE | 2018-07-12 20:37 | NUR ---
Discharge Note: OTILIA ZAVALA CONETOE Discharge instructions and discharge home medications reviewed with Patient and a copy given. All questions have been answered and understanding verbalized. The following instructions and handouts were given: new medications, surgery, and admission diagnosis Discontinued lines and drains: peripheral IV discontinued. Patient discharged to Home or Self Care with Family Member via Wheelchair by Staff member.
--- NOTE | 2018-07-14 08:11 | PATHOLOGY ---
[facility] Accession Number: [id number] . 01 Material submitted: . gallbladder - GALLBLADDER . 01 Clinical history: . Biliary colic . 02 Diagnosis: Gallbladder, laparoscopic cholecystectomy: - Cholelithiasis. - Chronic cholecystitis. 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 . (JPM:mml; 07/13/2018) QL/07/13/2018 . 02 Comment: There is no evidence of malignancy. . (JPM:mml; 07/13/2018) . 02 Electronically signed: . Emiliano Santiago MD, Pathologist NPI- [id number] . 01 Gross description: . The specimen is received in formalin labeled "Poli, Vesta, gallbladder" and consists of an intact, edematous, pink-niño, and hemorrhagic gallbladder measuring 9.8 in length and up to 4.2 in diameter. The margin is inked black. Opening reveals a lumen filled with tenacious green bile and a single brown-black large calculus measuring 6.4 x 3.8 x 3.7 cm. The mucosa is green-sebastian, eroded, trabeculated with an average wall thickness of 0.3 cm. Located adjacent to the gallbladder neck is a lymph node candidate measuring 1.7 x 0.9 cm. No masses are identified. Resource Analyst sections are submitted in A1-A3 with the lymph node candidate in A3. (SDY; 07/12/2018) SYU/SYU . 02 Pathologist provided ICD-10: K80.10 . 02 CPT . 109080 Specimen Comment: A courtesy copy of this report has been sent to Specimen Comment: [phone], , , . Specimen Comment: Report sent to ,DR ALVAREZ.DR GUTIERREZ / DR WRIGHT Performed at: [address], [place] [id number] MD Scott Carranza MD Phone: [phone] Performed at: 02 [facility] [address] [place], [place] [id number] MD Emiliano Santiago MD Phone: [phone]
== END 2018-07-12 20:23 | disposition home or self-care (01) | DRG 419 ==
LOC: ER 06:44 → 4 NORTH 08:45
PROVIDERS: ADMIT Internal Medicine; ATTEND Internal Medicine
PROC: BF131ZZ Fluoroscopy of Gallbladder and Bile Ducts using Low Osmolar Contrast (ICD-10-PCS; 2018-07-10)
PROC: 0FT44ZZ Resection of Gallbladder, Percutaneous Endoscopic Approach (ICD-10-PCS; principal; 2018-07-10 11:25)
DX: K80.00 Calculus of gallbladder with acute cholecystitis without obstruction (principal); K82.8 Other specified diseases of gallbladder; E66.9 Obesity, unspecified; I10 Essential (primary) hypertension; K76.0 Fatty (change of) liver, not elsewhere classified; Z68.33 Body mass index [BMI] 33.0-33.9, adult
CPT/HCPCS: 36415; 74300; 76705; 80053; 80076; 81001; 83690; 84703; 85025; 85610; 85730; 88304; 96361; 96374; 96375; 96376; A7015; J0690; J0696; J0780; J1100; J1644; J1885; J2001; J2250; J2270; J2405; J2543; J2704; J2710; J3010; J3490; J7030; J7120; Q9967; 99285-25